=== PATIENT | male | born 1940 | race Caucasian/White ===

== ENCOUNTER 2016-11-30 15:55 | Inpatient (IN) | payer OTHER, MEDICARE ==
[~2016-11-30] VITALS: Ht 170.2 cm; Wt 98.0 kg
[~2016-11-30 15:55] MED LIST: CARV25TA97 PO; CRES10 PO; FOLI-49 PO; FURO-109 PO; GABA100C14 PO; GLYB5TAB3 PO; INSU100C SC; LEVEM SC; LOSA25TA2 PO; PANT40TA3 PO; POTA8TAB2 PO
[2016-11-30] MEDS ORDERED: CEFTRIAXONE 1 GM/50 ML (PMX) 50 ML IVPB STA (16:18)
[2016-11-30] MEDS ORDERED: SODIUM CHLORIDE 0.9% 1L BAG IV* STA (16:18)
--- NOTE | 2016-11-30 16:52 | RADRPT ---
PROCEDURE: XR Chest. CLINICAL INDICATION: Cough. Sepsis. TECHNIQUE: Single frontal view. COMPARISON: 06/29/2015. FINDINGS: Mild pulmonary edema is unchanged. The lungs are otherwise clear. The heart is enlarged. There is calcification in the aorta consistent with atherosclerosis. There is no pleural effusion. There is no pneumothorax. IMPRESSION: 1. Mild pulmonary edema, unchanged. 2. Cardiomegaly and atherosclerosis. RPTAT: QQ .Michael Mcnally MD, MD Date Time Electronically viewed and signed by .Michael Mcnally MD, MD on 11/30/2016 16:51 .R/
[2016-11-30 17:30] LABS: ADD SCAN DIFF NO
[2016-11-30 17:32] LABS: ABNORMAL IP MESSAGE 1; BASOPHILS % 0.4 % (0.0-2.0); EOSINOPHILS # 0.2 10^3/ul (0.0-0.5); EOSINOPHILS % 2.5 % (0.0-7.0); HEMATOCRIT 35.5 % (42.0-52.0); HEMOGLOBIN 10.6 g/dl (14.0-18.0); LYMPHOCYTES # 1.2 10^3/ul (0.8-2.9); LYMPHOCYTES % 17.7 % (15.0-51.0); MEAN CORPUSCULAR HEMOGLOBIN 23.2 pg (29.0-33.0); MEAN CORPUSCULAR HGB CONC 29.9 g/dl (32.0-37.0); MEAN CORPUSCULAR VOLUME 77.7 fl (82.0-101.0); MEAN PLATELET VOLUME 9.1 fl (7.4-10.4); MONOCYTE # 0.8 10^3/ul (0.3-0.9); MONOCYTES % 11.8 % (0.0-11.0); NEUTROPHIL # 4.5 10^3/ul (1.6-7.5); NEUTROPHILS % 67.2 % (39.0-77.0); PLATELET COUNT 254 10^3/UL (140-415); RED BLOOD COUNT 4.57 10^6/ul (4.70-6.10); RED CELL DISTRIBUTION WIDTH 27.8 % (11.5-14.5); WHITE BLOOD COUNT 6.8 10^3/ul (4.8-10.8)
[2016-11-30 17:42] LABS: ALBUMIN 3.8 g/dl (3.3-4.9); CHLORIDE 98 mmol/L (97-110)
[2016-11-30 17:43] LABS: POTASSIUM 5.2 mmol/L (3.5-5.1); SODIUM 138 mmol/L (135-144)
[2016-11-30 17:45] LABS: ALBUMIN/GLOBULIN RATIO 1.05; ALKALINE PHOSPHATASE 120 IU/L (42-121); ANION GAP 19 (8-16); ASPARTATE AMINO TRANSFERASE 21 IU/L (15-46); BILIRUBIN,INDIRECT 0.4 mg/dl (0-1.1); BILIRUBIN,TOTAL 0.4 mg/dl (0.2-1.3); CARBON DIOXIDE 26 mmol/L (21-31); CREATININE 2.48 mg/dl (0.61-1.24); TOTAL PROTEIN 7.4 g/dl (6.1-8.1)
[2016-11-30 17:46] LABS: ALANINE AMINOTRANSFERASE 18 IU/L (13-69); BLOOD UREA NITROGEN 35 mg/dl (7-20); CALCIUM 9.5 mg/dl (8.4-10.2); GLUCOSE 138 mg/dl (70-220)
[2016-11-30 17:58] LABS: TROPONIN-I < 0.012 ng/ml (0.00-0.12)
[2016-11-30 18:30] VITALS: TEMP 99
[2016-11-30 18:42] LABS: INR 0.99; PROTIME 13.1 Sec (12.2-14.2)
[2016-11-30 18:43] LABS: PARTIAL THROMBOPLASTIN TIME 28.5 Sec (25.0-35.0)
[2016-11-30] MEDS ORDERED: OMEP20CA16 PO (18:48)
[2016-11-30] MEDS ORDERED: CHOL500010 PO (18:50)
[2016-11-30] MEDS ORDERED: UBID200C8 PO (18:51)
[2016-11-30] MEDS ORDERED: LYR75 PO (18:53)
[2016-11-30] MEDS ORDERED: INSU100I7 SQ (19:43)
[2016-11-30] MEDS ORDERED: ONDANSETRON 4 MG INJ IV PRN (23:00)
[2016-11-30] MEDS ORDERED: ACETAMINOPHEN 325 MG TAB PO PRN (23:00)
[2016-11-30] MEDS ORDERED: NA POLYST SULFON 15 GM/60 ML BTL PO ONE (23:30)
--- NOTE | 2016-11-30 23:37 | ERD ---
ER Documentation Chief Complaint Date/Time DATE: 11/30/16 TIME: 23:15 Chief Complaint COUGH AND CONGESTION FOR THE PAST WEEK. GOT WORSE LAST NIGHT. MORE WEAK HPI 76-year-old male brought in by family and sent for primary care doctor for generalized weakness in addition to cough and congestion for the past week. Primary care doctor was also worried about dehydration and possible pneumonia. Patient has had chest pain mostly only with cough. Denies any fevers or chills. ROS All systems reviewed and are negative except as per history of present illness. Medications Home Meds Active Scripts Losartan Potassium* (Cozaar*) 25 Mg Tab, 25 MG PO DAILY, #30 Prov:RADAMANDAKO,JUVENCIO 06/30/15 Furosemide* (Lasix*) 40 Mg Tab, 80 MG PO DAILY, #30 Prov:RADCHENKO,JUVENCIO 06/30/15 Carvedilol* (Coreg*) 25 Mg Tab, 25 MG PO BID, #60 Prov:LONG DOEETLANA 05/31/15 Reported Medications Insulin Lispro Protamin/Lispro (Humalog Mix 75-25 Kwikpen) 100 Unit/1 Ml Insuln.pen, 0 SQ BID TAKE 30 UNITS QAM AND 20 UNITS QPM 11/30/16 Pregabalin* (Lyrica*) 75 Mg Capsule, 75 MG PO, CAP 11/30/16 Ubidecarenone* (Co Q-10*) 200 Mg Capsule, 200 MG PO HS, CAP 11/30/16 Cholecalciferol (Vitamin D3) 5,000 Unit Tablet, 5000 UNIT PO DAILY, TAB 11/30/16 Omeprazole* (Omeprazole*) 20 Mg Capsule.dr, 20 MG PO DAILY, #30 CAP 11/30/16 Potassium Chloride* (Klor-Con*) 8 Meq Tablet.sa, 8 MEQ PO DAILY, TAB 05/27/15 Insulin Detemir* (Levemir*) 100 U/Ml Vial, 50 UNIT SC DAILY, VIAL 03/16/15 Glyburide* (Glyburide*) 5 Mg Tablet, 5 MG PO BID 04/13/10 Folic Acid* (Folic Acid*) 1 Mg Tablet, 1 MG PO DAILY 04/13/10 Discontinued Reported Medications Pantoprazole* (Protonix*) 40 Mg Tablet.dr, 40 MG PO DAILY, TAB 05/27/15 Gabapentin* (Gabapentin*) 100 Mg Capsule, 100 MG PO BID, CAP 03/16/15 Insulin Lispro (Humalog) 100 U/Ml Cartridge, 30 UNITS SC BID, EA 06/17/14 Rosuvastatin Calcium* (Crestor*) 10 Mg Tablet, 10 MG PO DAILY 04/13/10 Allergies Allergies: Coded Allergies: influenza virus vaccine, specific (Verified Allergy, Unknown, 11/30/16) PMhx/Soc History of Surgery: Yes (cath 2010, R shoulder repair, R carotid, s/p TURP, B cataract, B TKR) Anesthesia Reaction: Yes (during bilateral shoulder surgery lung collapsed under anesthesia ) Hx Neurological Disorder: No Hx Respiratory Disorders: Yes (CHF) Hx Cardiac Disorders: Yes (HTN, HI CHO) Hx Psychiatric Problems: No Hx Miscellaneous Medical Probl: Yes (CAD, HTN, DM, dyslipidemia, CKD, cardiomyopathy) Hx Alcohol Use: Yes Hx Substance Use: No Hx Tobacco Use: Yes Smoking Status: Former smoker Physical Exam Vitals Vital Signs Date Time Temp Pulse Resp B/P Pulse Ox O2 Delivery O2 Flow Rate FiO2 11/30/16 21:43 88 21 126/72 94 Nasal Cannula 2.0 11/30/16 18:30 99.0 63 17 110/60 99 Room Air 11/30/16 17:34 89 20 148/105 100 3.0 11/30/16 17:34 Nasal Cannula 3.0 11/30/16 17:30 Nasal Cannula 3 11/30/16 15:59 101.0 90 22 90/53 92 Physical Exam Const: [] No acute distress Head: Atraumatic Eyes: Normal Conjunctiva ENT: Normal External Ears, Nose and Mouth. Somewhat dry mucous membranes of the mouth Neck: Full range of motion..~ No meningismus. Resp: Decreased bibasilar breath sounds, Cardio: Regular rate and rhythm, no murmurs Abd: Soft, non tender, non distended. Normal bowel sounds Skin: No petechiae or rashes Back: No midline or flank tenderness Ext: No cyanosis, or edema Neur: Awake and alert and oriented 3, no focal deficits, cranial nerves II through XII intact Psych: Normal Mood and Affect Result Diagram: 11/30/16 1715 11/30/16 171 Results 24 hrs Laboratory Tests Test 11/30/16 17:15 11/30/16 19:50 11/30/16 20:20 Activated Partial Thromboplast Time 28.5Sec Alanine Aminotransferase (ALT/SGPT) 18IU/L Albumin 3.8g/dl Albumin/Globulin Ratio 1.05 Alkaline Phosphatase 120IU/L Anion Gap 19 Aspartate Amino Transf (AST/SGOT) 21IU/L B-Type Natriuretic Peptide 1160PG/ML Basophils # 0.010^3/ul Basophils % 0.4% Blood Urea Nitrogen 35mg/dl Calcium Level 9.5mg/dl Carbon Dioxide Level 26mmol/L Chloride Level 98mmol/L Creatinine 2.48mg/dl Direct Bilirubin 0.00mg/dl Eosinophils # 0.210^3/ul Eosinophils % 2.5% Globulin 3.60g/dl Glucose Level 138mg/dl Hematocrit 35.5% Hemoglobin 10.6g/dl INR International Normalized Ratio 0.99 Indirect Bilirubin 0.4mg/dl Lactic Acid Level 2.4mmol/L 1.3mmol/L 1.6mmol/L Lymphocytes # 1.210^3/ul Lymphocytes % 17.7% Mean Corpuscular Hemoglobin 23.2pg Mean Corpuscular Hemoglobin Concent 29.9g/dl Mean Corpuscular Volume 77.7fl Mean Platelet Volume 9.1fl Monocytes # 0.810^3/ul Monocytes % 11.8% Neutrophils # 4.510^3/ul Neutrophils % 67.2% Nucleated Red Blood Cells # 0.010^3/ul Nucleated Red Blood Cells % 0.0/100WBC Platelet Count 41633^3/UL Potassium Level 5.2mmol/L Prothrombin Time 13.1Sec Prothrombin Time Ratio 1.0 Red Blood Count 4.5710^6/ul Red Cell Distribution Width 27.8% Sodium Level 138mmol/L Total Bilirubin 0.4mg/dl Total Protein 7.4g/dl Troponin I < 0.012ng/ml White Blood Count 6.810^3/ul Current Medications Medications (Trade) Dose Ordered Sig/Anderson Route PRN Reason Start Time Stop Time Status Last Admin Dose Admin Sodium Chloride 3010 ml 3,010 ml BOLUS OVER 2 HOURS STAT IV* 11/30/16 16:18 11/30/16 16:25 DC 11/30/16 17:52 Ceftriaxone Sodium (Rocephin) 50 ml @ 100 mls/hr ONCE STAT IVPB 3/17/17 16:18 11/30/16 16:47 DC 11/30/16 17:52 Ondansetron HCl (Zofran Inj) 4 mg ER BRIDGE PRN IV NAUSEA AND/OR VOMITING 11/30/16 23:00 12/01/16 22:59 Acetaminophen (Tylenol Tab) 650 mg ER BRIDGE PRN PO MILD PAIN/FEVER 11/30/16 23:00 12/01/16 22:59 Procedures/MDM 76-year-old male with dehydration and mild CHF exacerbation. Does have a significant cardiac history with atypical chest pain. Initially a septic workup was performed out of concern for pneumonia secondary to patient's symptoms of cough and generalized weakness. Was given normal saline 30 cc/kg for fluid resuscitation and further resuscitation will require very careful balance of fluid control in order to rehydrate with concurrent congestive heart failure. I have low suspicion for acute bacterial infection. See no need for IV antibiotics at this time. Cultures were taken. Patient may have an upper respiratory tract infection is viral in origin causing his cough as well as possible congestive heart failure. Being tested for influenza. He was given Kayexalate for mild hyperkalemia with no EKG changes. Spoke with Dr. Charles who says that he defers admission to the hospitalist team. I communicated with Dr. Clinton who will be admitting the patient to telemetry. EKG interpretation: Normal sinus rhythm rate of 87, right axis deviation, right bundle branch block, diffuse Q waves, no ST or T-wave changes concerning for acute ischemia. electronic device monitor interpretation: Normal sinus rhythm without arrhythmia Chest x-ray interpretation: Mild pulmonary edema, large mid pulmonary vasculature, no infiltrate, pneumothorax, no acute fractures. Departure Diagnosis: Primary Impression: Dehydration Additional Impressions: CHF (congestive heart failure) Hyperkalemia Renal insufficiency Condition: Stable HARJIT GARCIA DO Nov 30, 2016 23:37
[2016-12-01] VITALS (15 sets, daily range): BP systolic 116–173; BP diastolic 56–78; PULSE 89–97; RESP 16–21; Ht 170.2 cm; Wt 98.0 kg
[2016-12-01] MEDS ORDERED: UBID1CAP25 PO (00:40)
[2016-12-01] MEDS ORDERED: UBID200C3 PO (00:40)
[2016-12-01] MEDS ORDERED: LYR75 PO (00:40)
[2016-12-01] MEDS ORDERED: morphine 2 MG INJ IV PRN (01:00)
[2016-12-01] MEDS ORDERED: hydrALAzine 20 MG INJ IV PRN (01:00)
[2016-12-01] MEDS ORDERED: MAGNESIUM HYDROXIDE 30ML CUP PO PRN (01:00)
[2016-12-01] MEDS ORDERED: ONDANSETRON 4 MG INJ IV PRN (01:00)
[2016-12-01] MEDS ORDERED: DOCUSATE SODIUM 100 MG CAP PO PRN (01:00)
[2016-12-01] MEDS ORDERED: NACL 0.9% 3 ML SYG IV SCH (01:00)
[2016-12-01] MEDS ORDERED: ACETAMINOPHEN 325 MG TAB PO PRN (01:00)
[2016-12-01] MEDS ORDERED: NITROGLYCERIN (SL) 0.4 MG TAB SL PRN (01:00)
[2016-12-01] MEDS ORDERED: NA PHOSPHATE/BIPHOS 133 ML ENEMA PR PRN (01:00)
[2016-12-01] MEDS: HYDROCODONE/APAP (5/325) TAB PO PRN (01:22)
[2016-12-01 02:22] LABS: CREATINE KINASE 111 IU/L (23-200)
[2016-12-01 02:40] LABS: CK-MB 1.01 ng/ml (0.0-2.4); TROPONIN-I < 0.012 ng/ml (0.00-0.12)
[2016-12-01] MEDS ORDERED: GLUCAGON 1 MG INJ IM PRN (05:30)
[2016-12-01] MEDS ORDERED: DEXTROSE 50% 50 ML SYRINGE IV PRN ×2 (05:30)
[2016-12-01] MEDS ORDERED: GLUCOSE GEL 15 GRAM TUBE PO PRN ×2 (05:30)
[2016-12-01] MEDS ORDERED: GLUCOSE GEL 15 GRAM TUBE BUCCAL PRN (05:30)
[2016-12-01] MEDS: PANTOPRAZOLE (EC) 40 MG TAB PO SCH (05:48)
[2016-12-01] MEDS: LEVOFLOXACIN 750MG/D5W (PMX) 150 ML IVPB SCH (05:48)
[2016-12-01] MEDS ORDERED: FUROSEMIDE 40 MG INJ IV SCH (06:00)
[2016-12-01] MEDS ORDERED: FUROSEMIDE 20 MG INJ IV SCH (06:00)
--- NOTE | 2016-12-01 07:43 | HP ---
DATE OF ADMISSION: 11/30/2016 The patient was seen and examined by me on 11/30/2016 at 11:15 p.m. CHIEF COMPLAINT: Cough and congestion. HISTORY OF PRESENT ILLNESS: The patient is a 76-year-old male with a past medical history of coronar y artery disease, essential hypertension, type 2 diabetes, high cholesterol, CKD, and cardiomyopathy who was sent in by his primary care doctor and by family because of weakness, cough and congestion for about 1 week. Apparently the primary care doctor was concerned about pneumonia and possible deh ydration. The patient has been having some chest pressure as well, mostly associated with a cough. No fevers or chills. No upper or lower GI bleeding. No nausea, vomiting, no diarrhea, no constipa tion. When he came into the ER today he had a BNP of 1160, and his chest x-ray did show signs of so me mild pulmonary edema. When he came into the ER he was found with a temperature of 101 as well. PAST MEDICAL HISTORY: As stated above. ALLERGIES: INFLUENZA VIRUS VACCINE. PAST SURGICAL HISTORY: He had cardiac catheterization in 2009, right shoulder repair surgery in the past, TURP surgery in the past, cataract surgery in the past, and total knee replacement in the pas t. FAMILY HISTORY: Noncontributory. SOCIAL HISTORY: Positive for alcohol use, a former smoker. Denies any IV drug abuse. PHYSICAL EXAMINATION: VITAL SIGNS: Today T-max 101.1, pulse of 63 to 90, respirations 17 to 22, blood pressure is 90 to 1 48 systolic over 53 to 105 diastolic, saturating at 92% to 100% on 3 liters nasal cannula. GENERAL: The patient is lying in bed, in no acute distress. HEENT: Pupils are equal, round, and react to light. Extraocular muscles are intact. Slightly dry mucous membranes noted in the mouth. NECK: Supple. No thyromegaly. LUNGS: Slightly decreased breath sounds bilaterally. CARDIOVASCULAR: S1, S2 heard. No rubs or gallops. ABDOMEN: Soft, nontender, nondistended. Normal bowel sounds. No rebound or guarding. MUSCULOSKELETAL: No lower extremity edema bilaterally. NEUROLOGIC: No focal deficits. LABORATORIES: WBC 6.8, hemoglobin 10.6, hematocrit 35.5, platelets of 254. BNP, again, 1,160. Sod ium 138, potassium 5.3, chloride 98, CO2 26, BUN 35, creatinine 2.48. Lactic acid was 2.4, glucose was 138. LFTs were normal. Troponin was negative x1. IMAGING: Chest x-ray, again, showed cardiomegaly, atherosclerosis, and mild pulmonary edema. ASSESSMENT AND PLAN: A 76-year-old male coming in with signs of cough and congestion, with signs of CHF and acute on chronic renal insufficiency. 1. Shortness of breath secondary to congestive heart failure. The patient also has fever and an el evated lactic acid. Unclear source, possible upper respiratory infection component as well. Admit the patient to the med/surg floor. For now will put him on low-dose Lasix to diurese him and will p ut him on broad-spectrum antibiotics, trend his lactic acid, check a TSH, A1c, and lipid panel. Tyl enol p.r.n. for pain and fevers. Put him on Levaquin antibiotic as well. 2. Acute on chronic renal insufficiency. Because of the patient CHF, we are going to monitor him f or now. Monitor urine output. If it gets worse, will consider stopping the low-dose diuretics and putting him on IV fluids. Will also check a 2D echocardiogram as well. Get PT and OT consults. 3. History of diabetes. Continue the patient on a sliding scale and check an A1c. 4. High cholesterol. Check a lipid panel 5. History of hypertension. Blood pressure is stable presently. Continue the current medications, including hydralazine p.r.n. 6. History of coronary artery disease. Continue to monitor for now. He is also on low-dose beta b locker. 7. Gastrointestinal prophylaxis. PPI. 8. Deep venous thrombosis prophylaxis. Heparin subcutaneously. Dictated By: ANAHI CAVAZOS Conf#: [id number] DID#: [id number]
[2016-12-01] MEDS: INSULIN ASPART [NOVOLOG] 3 ML PEN SC SCH ×5 (07:55→21:00)
[2016-12-01 08:52] LABS: ADD SCAN DIFF NO
[2016-12-01 09:09] LABS: ABNORMAL IP MESSAGE 1; BASOPHILS % 0.2 % (0.0-2.0); EOSINOPHILS # 0.1 10^3/ul (0.0-0.5); EOSINOPHILS % 2.3 % (0.0-7.0); HEMATOCRIT 33.6 % (42.0-52.0); HEMOGLOBIN 9.8 g/dl (14.0-18.0); LYMPHOCYTES # 1.5 10^3/ul (0.8-2.9); LYMPHOCYTES % 29.4 % (15.0-51.0); MEAN CORPUSCULAR HEMOGLOBIN 22.8 pg (29.0-33.0); MEAN CORPUSCULAR HGB CONC 29.2 g/dl (32.0-37.0); MEAN CORPUSCULAR VOLUME 78.3 fl (82.0-101.0); MEAN PLATELET VOLUME 9.2 fl (7.4-10.4); MONOCYTE # 0.7 10^3/ul (0.3-0.9); MONOCYTES % 13.6 % (0.0-11.0); NEUTROPHIL # 2.8 10^3/ul (1.6-7.5); NEUTROPHILS % 54.1 % (39.0-77.0); PLATELET COUNT 242 10^3/UL (140-415); RED BLOOD COUNT 4.29 10^6/ul (4.70-6.10); RED CELL DISTRIBUTION WIDTH 28.2 % (11.5-14.5); WHITE BLOOD COUNT 5.2 10^3/ul (4.8-10.8)
[2016-12-01 09:27] LABS: POTASSIUM 4.5 mmol/L (3.5-5.1)
[2016-12-01 09:29] LABS: CREATININE 2.25 mg/dl (0.61-1.24)
[2016-12-01 09:30] LABS: CALCIUM 9.4 mg/dl (8.4-10.2); CREATINE KINASE 119 IU/L (23-200)
[2016-12-01 09:44] LABS: CK-MB 1.14 ng/ml (0.0-2.4); TROPONIN-I < 0.012 ng/ml (0.00-0.12)
[2016-12-01] MEDS: INSULIN DETEMIR [LEVEMIR] 3ML CART SC SCH (10:22)
[2016-12-01] MEDS: CHOLECALCIFEROL 1,000 UNIT TAB PO SCH (10:53)
[2016-12-01] MEDS: FOLIC ACID 1 MG TAB PO SCH (10:58)
[2016-12-01] MEDS: POTASSIUM CHLORIDE (SR) 8 MEQ CAP PO SCH (10:58)
[2016-12-01] MEDS: HEPARIN 5,000 UNIT/0.5 ML SYG SC SCH ×2 (11:01→21:24)
[2016-12-01 18:06] LABS: ADD UMIC YES; URINE BILIRUBIN (Dip) NEGATIVE (NEGATIVE); URINE BLOOD (Dip) TRACE (NEGATIVE); URINE COLOR LT. YELLOW (YELLOW); URINE GLUCOSE (Dip) NEGATIVE (NEGATIVE); URINE KETONES (Dip) NEGATIVE (NEGATIVE); URINE LEUKOCYTE ESTERASE (Dip) NEGATIVE (NEGATIVE); URINE NITRITE (Dip) NEGATIVE (NEGATIVE); URINE TOTAL PROTEIN (Dip) 2+ (NEGATIVE); URINE UROBILINOGEN (Dip) 0.2 E.U./dL (0.1-1.0)
[2016-12-01 18:17] LABS: BACTERIA,URINE FEW; TRANSITIONAL EPI CELLS,URINE FEW
[2016-12-01] MEDS: ALBUTEROL/IPRATROPIUM (NEB) 3 ML AMP HHN PRN (18:48)
[2016-12-01] MEDS: ALBUTEROL 0.083% (NEB) 2.5 MG/3 ML AMP HHN SCH (19:02)
[2016-12-01] MEDS ORDERED: NON-FORMULARY/PATIENT OWN MED (Ubidecarenone* (Co Q-10*) 200 MG) PO SCH (21:00)
[2016-12-01] MEDS: DOCUSATE SODIUM 100 MG CAP PO SCH (21:20)
[2016-12-02] VITALS (13 sets, daily range): BP systolic 142–167; BP diastolic 70–82; PULSE 90–93; RESP 16–20
[2016-12-02] MEDS: ALBUTEROL 0.083% (NEB) 2.5 MG/3 ML AMP HHN SCH ×3 (01:33→14:00)
[2016-12-02] MEDS: ACCU-CHEK XX SCH (01:54)
--- NOTE | 2016-12-02 04:59 | CONS ---
DATE OF ADMISSION: 11/30/2016 DATE OF CONSULTATION: 12/01/2016 NEPHROLOGY CONSULTATION REFERRING PHYSICIAN: Anber Clinton MD REASON FOR CONSULTATION: Acute kidney injury versus acute kidney injury on chronic kidney disease. HISTORY OF PRESENT ILLNESS: This is a 76-year-old male with a past medical history of coronary artery disease, essential hypertension, type 2 diabetes mellitus, high cholesterol, CKD, cardiomyopathy. He was sent by his primary care doctor because of having weakness, cough, congestion for about 1 week. His primary care doctor was also concerned about having pneumonia. The patient was dehydrated in the emergency room. He had a BNP of 1160. Chest x-ray shows mild pulmonary congestion. The patient was febrile in the emergency room. He was noted to have a creatinine of 2.48, BUN 35, potassium 5.2 on admission. His bicarbonate was 26. Renal has been consulted for acute versus acute on chronic renal failure. At the time of my evaluation on the telemetry floor, the patient was denying any nausea, vomiting, headache, dizziness, blurry vision, constipation, diarrhea , dysuria, increased urinary frequency. His systolic blood pressure was from 130s to 170s. REVIEW OF SYSTEMS: Positive for cough, congestion, weakness, fatigue, and fever. Other review of systems has been obtained and is negative except what is mentioned in the history of present illness. PAST MEDICAL HISTORY: Notable for hypertension, hyperlipidemia, cardiomyopathy , history of coronary artery disease, history of possible previous chronic kidney disease secondary to diabetic and hypertensive nephropathy. PAST SURGICAL HISTORY: The patient had a cardiac catheterization in 2009, right shoulder repair surgery in the past, TURP surgery in the past, cataract surgery in the past, total knee replacement in the past. FAMILY HISTORY: Noncontributory. SOCIAL HISTORY: The patient positive for alcohol use, former smoker, and denies any IV drug use. PHYSICAL EXAMINATION: VITAL SIGNS: The patient had a fever of 101.1, currently afebrile, temperature 98.6, heart rate 95, respiration 21, blood pressure 160/72, saturation 99% on 2 liter nasal cannula. GENERAL: Awake, alert, in no acute distress. HEENT: Normal. Oropharynx clear. NECK: Supple, no JVD, no lymphadenopathy. LUNGS: Clear to auscultation. Decreased breath sounds at both lung bases. HEART: S1, S2, with regular rhythm, no murmur. ABDOMEN: Soft, nontender, nondistended. Bowel sounds are present. EXTREMITIES: No clubbing, cyanosis, or edema. The patient has bibasilar crackles present on the lung exam. SKIN: No rash. PSYCHIATRIC: Appropriate affect and mood. LABORATORY DATA AND DIAGNOSTIC IMAGING: Sodium 138, potassium 5.2, chloride 98 , bicarbonate 26, BUN 35, creatinine 2.8, glucose 138. Lactic acid 2.4. LFTs are normal. BNP 1160. PT 13, PTT 28, INR 0.99. WBC 5.2, hemoglobin 9.8, platelet count 242. Chest x-ray 1 view portable shows pulmonary congestion with cardiomegaly and atherosclerosis. IMPRESSION: This is a 76-year-old male who presented with 1. Acute kidney injury versus acute kidney injury on chronic kidney disease, stage III to IV, secondary to hemodynamics in the setting of congestive heart failure and pneumonia. 2. Possible H/o chronic kidney disease, stage III to IV, secondary to diabetic nephropathy. 3. History of coronary artery disease status post previous cardiac catheterization. 4. History of hypertension. 5. History of type 2 diabetes mellitus. 6. Hyperkalemia secondary to acute kidney injury. 7. History of benign prostatic hypertrophy status post transurethral resection of the prostate in the past. PLAN: 1. I will order the patient's urine studies including a urine sodium, urine protein creatinine, urine eosinophils. 2. CK total with uric acid has been ordered with a.m. labs. 3. Renal ultrasound has been ordered to assess the kidney size and to rule out hydronephrosis. 4. Continue the current medications including IV antibiotics for pneumonia, Coreg. 5. I will increase the patient's IV Lasix to 40 mg IV daily for better diuresis. 6. The patient already received Kayexalate for his hyperkalemia, so we will continue to monitor his potassium with a.m. labs. Thank you, Dr. Clinton, for this consultation. I will continue to follow the patient. Total time spent in this patient's evaluations, making assessment and plan, Explaining Plan of Care to patient and the family member at bedside, communicating with the nursing staff took more than 90 minutes, and more than 50 % time spent in patient education and nursing staff communication. Dictated By: CORNELIO JOSÉ MD, KP/MASON Conf#: [id number] [facility]#: [id number] MTDD
[2016-12-02] MEDS: PANTOPRAZOLE (EC) 40 MG TAB PO SCH (06:01)
[2016-12-02] MEDS: FUROSEMIDE 40 MG INJ IV SCH (06:02)
[2016-12-02 06:06] LABS: ADD SCAN DIFF NO
[2016-12-02] MEDS: ALBUTEROL/IPRATROPIUM (NEB) 3 ML AMP HHN PRN ×3 (06:07→20:34)
[2016-12-02 06:14] LABS: ABNORMAL IP MESSAGE 1; BASOPHILS % 0.2 % (0.0-2.0); EOSINOPHILS # 0.2 10^3/ul (0.0-0.5); EOSINOPHILS % 3.7 % (0.0-7.0); HEMATOCRIT 34.9 % (42.0-52.0); HEMOGLOBIN 10.5 g/dl (14.0-18.0); LYMPHOCYTES # 1.6 10^3/ul (0.8-2.9); LYMPHOCYTES % 28.4 % (15.0-51.0); MEAN CORPUSCULAR HEMOGLOBIN 23.6 pg (29.0-33.0); MEAN CORPUSCULAR HGB CONC 30.1 g/dl (32.0-37.0); MEAN CORPUSCULAR VOLUME 78.4 fl (82.0-101.0); MEAN PLATELET VOLUME 9.1 fl (7.4-10.4); MONOCYTE # 0.7 10^3/ul (0.3-0.9); MONOCYTES % 12.8 % (0.0-11.0); NEUTROPHILS % 54.7 % (39.0-77.0); PLATELET COUNT 255 10^3/UL (140-415); RED BLOOD COUNT 4.45 10^6/ul (4.70-6.10); RED CELL DISTRIBUTION WIDTH 27.9 % (11.5-14.5); WHITE BLOOD COUNT 5.5 10^3/ul (4.8-10.8)
[2016-12-02 06:18] LABS: IRON 25 ug/dl (35-150)
[2016-12-02 06:28] LABS: TOTAL IRON BINDING CAPACITY 354 ug/dl (241-421)
[2016-12-02 06:29] LABS: URIC ACID 12.9 mg/dl (3.1-7.9)
[2016-12-02 07:12] LABS: POTASSIUM 3.8 mmol/L (3.5-5.1)
[2016-12-02 07:14] LABS: CREATININE 1.99 mg/dl (0.61-1.24)
[2016-12-02 07:15] LABS: MAGNESIUM 1.9 mg/dl (1.7-2.5); PHOSPHORUS 3.2 mg/dl (2.5-4.9)
[2016-12-02 07:16] LABS: CHOL/HDL RATIO 6.9 RATIO
[2016-12-02 07:46] LABS: THYROID STIMULATING HORMONE 1.47 MIU/L (0.465-4.680)
[2016-12-02] MEDS: INSULIN ASPART [NOVOLOG] 3 ML PEN SC SCH ×7 (07:55→21:00)
[2016-12-02] MEDS: POTASSIUM CHLORIDE (SR) 8 MEQ CAP PO SCH (08:54)
[2016-12-02] MEDS: FOLIC ACID 1 MG TAB PO SCH (08:55)
[2016-12-02] MEDS: DOCUSATE SODIUM 100 MG CAP PO SCH ×2 (08:55→21:15)
[2016-12-02] MEDS: CHOLECALCIFEROL 1,000 UNIT TAB PO SCH (08:55)
[2016-12-02] MEDS: HEPARIN 5,000 UNIT/0.5 ML SYG SC SCH ×2 (08:56→21:20)
[2016-12-02] MEDS: INSULIN DETEMIR [LEVEMIR] 3ML CART SC SCH (08:56)
--- NOTE | 2016-12-02 10:15 | RADRPT ---
PROCEDURE: Retroperitoneal US. CLINICAL INDICATION: Renal insufficiency TECHNIQUE: Multiple sonographic images of the kidneys and retroperitoneum were obtained. The imag es were reviewed on a PACS workstation. COMPARISON: 03/17/2015 FINDINGS: The kidneys are normal in size, contour, cortical thickness and cortical echogenicity. The right kidney measures 11.6 cm. The left kidney measures 12.3 cm. There are bilateral simple cysts in the kidneys, the largest in the right kidney measures 2.2 cm and the largest in the left kidney measures 3 cm. No kidney stones are visualized. There is no evidence for hydronephrosis. The urinary bladder is normal. RPTAT: AA IMPRESSION: Bilateral simple kidney cysts. No evidence of hydronephrosis. .Kentrell Campo MD, Date Time Electronically viewed and signed by .Kentrell Campo MD, MD on 12/02/2016 10:14 .S/
[2016-12-02] MEDS: SOD FERRIC GLUC COMPLX 125 MG in SOD CHLORIDE 0.9% 100 ML IVPB SCH (11:18)
--- NOTE | 2016-12-02 14:55 | RADRPT ---
Echocardiogram Report Patient Name: CAROLA GAITAN Gender: Male Date: 1940 Study Date: 01-Dec-2016 Systems Integration Advisor: DIANA Location: E Ref. Physician: ANAHI CARDOZA Quality: Adequate Procedures: Transthoracic echocardiogram with complete 2D, M-Mode, and doppler examination. Indications: Congestive Heart Failure. 2D/M Mode Doppler Measurement Value Normal Ranges Measurement Value Normal Ranges AoR Diam MM 3.6 cm AV Peak Rogelio 1.4 m/sec ACS MM 2.4 cm AV Peak PG 8.1 mmHg LVIDd 2D 5.2 3.5 - 5.6 cm LVOT Peak Rogelio 0.7 m/sec LVIDs 2D 3.9 2.1 - 4.1 cm LVOT Peak PG 1.9 mmHg LVPWd 2D 1.2 0.6 - 1.1 cm MV E Peak Rogelio 0.8 m/sec IVSd 2D 1.3 0.6 - 1.1 cm MV A Peak Rogelio 1.0 m/sec EDV 2D 131.2 cm3 MV E/A 0.8 ESV 2D 58.3 cm3 MV Decel Time 156 msec LA Dimen 2D 4.3 2.3 - 4.0 cm MV Decel Barrow 5 MV E/A 0.8 PV Peak Rogelio 1.0 m/sec PV Peak PG 4.0 mmHg Findings Left Ventricle: Normal left ventricular cavity size. Mild concentric left ventricular hypertrophy. At least mild global left ventricular systolic dysfunction, not all hawthorne imaged well. Ejection fraction is visually estimated at 45 %. Tissue Doppler/Mitral Doppler indices are consistent with impaired relaxation (Stage I diastolic dysfunction). E/E`=14. Wall motion abnormalities present, not all hawthorne imaged well. Right Ventricle: Normal right ventricular size. Normal right ventricular systolic function. Left Atrium: There is mild enlargement of left atrium. Right Atrium: The right atrium is normal in size. Atrial Septum: Normal atrial septum. Mitral Valve: Mild mitral annular calcification. Trace mitral regurgitation. Aortic Valve: No significant aortic stenosis or insufficiency. Normal trileaflet aortic valve structure. Aortic sclerosis without stenosis. Trileaflet aortic valve. Tricuspid Valve: Normal appearance of the tricuspid valve. Unable to obtain RVSP due to minimal presence of tricuspid regurgitation. There is trace tricuspid regurgitation. Pulmonic Valve: Normal pulmonic valve appearance. No evidence of pulmonic regurgitation. Pericardium: Moderate pericardial effusion no evidence of hemodynamic significant, unchanged from echo 2015. Aorta: Normal aortic root. IVC: Normal size and normal respiratory collapse consistent with normal right atrial pressure. Pulmonary Artery: Normal pulmonary artery size. Conclusions Normal left ventricular cavity size. Mild concentric left ventricular hypertrophy. At least mild global left ventricular systolic dysfunction, not all hawthorne imaged well. Ejection fraction is visually estimated at 45 %. Tissue Doppler/Mitral Doppler indices are consistent with impaired relaxation (Stage I diastolic dysfunction). E/E`=14. Wall motion abnormalities present, not all hawthorne imaged well. Normal right ventricular size. Normal right ventricular systolic function. There is mild enlargement of left atrium. Normal appearance of the tricuspid valve. Unable to obtain RVSP due to minimal presence of tricuspid regurgitation. There is trace tricuspid regurgitation. Moderate pericardial effusion no evidence of hemodynamic significant, unchanged from echo 2015. Normal size and normal respiratory collapse consistent with normal right atrial pressure. Compared with prior echo performed in 2015, no significant change. Electronically Signed By: Pranay Brownlee 02-Dec-2016 14:55:07 -0700 Patient Name: CAROLA GAITAN Study Date: 01-Dec-[id number]
[2016-12-02] MEDS ORDERED: SOD FERRIC GLUC COMPLX 125 MG in SOD CHLORIDE 0.9% 100 ML IVPB SCH (15:30)
--- NOTE | 2016-12-02 15:37 | PN ---
Date/Time of Note Date/Time of Note DATE: 12/02/16 TIME: 15:28 Assessment/Plan VTE Prophylaxis VTE Prophylaxis Intervention: heparin Lines/Catheters IV [facility]ter Type (from [facility]): [facility] Urinary Cath still in place: No Assessment/Plan Assessment/Plan A 76-year-old male coming in with signs of cough and congestion, with signs of CHF and acute on chronic renal insufficiency. 1. Shortness of breath secondary to congestive heart failure: improved 2. Sepsis 2/2 URI 3. Acute kidney injury versus acute kidney injury on chronic kidney disease, stage III to IV, secondary to hemodynamics in the setting of congestive heart failure and pneumonia. 4. Chronic kidney disease, stage III to IV, secondary to diabetic nephropathy. 5. Known coronary artery disease status post previous cardiac catheterization. 6. Hypertension. 7. Type 2 diabetes mellitus. 8. Hyperkalemia secondary to acute kidney injury. 9. History of benign prostatic hypertrophy status post transurethral resection of the prostate in the past. 10. 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 Chronic Moderate pericardial effusion , unchanged since 2014 12. Anemia of CKD + iron deficiency PLAN: * Continue diuresis * Continue abx / add mucolytic and inhaled steroids * appreciate Nephrology input f/u cardiology recs * Begin iron replenishment * Continue supportive care * Plan for d/c possibly tomorrow if cleared by both renal and cardio and if no further fever PROPHYLAXIS: Heparin / pepcid Subjective 24 Hr Interval Summary Free Text/Dictation c/o dry cough and inability to expectorate Exam/Review of Systems Vital Signs Vitals Vital Signs Date Time Temp Pulse Resp B/P Pulse Ox O2 Delivery O2 Flow Rate FiO2 12/02/16 14:24 2.0 12/02/16 12:25 93 12/02/16 11:40 98.5 20 154/74 99 12/02/16 11:27 Nasal Cannula Intake and Output 12/01/16 12/01/16 12/02/16 14:59 22:59 06:59 Intake Total 900 ml 850 ml Output Total 1200 ml Balance 900 ml -350 ml Exam Constitutional: alert, obese, oriented Head: atraumatic, normocephalic Eyes: PERRL ENMT: mucosa pink and moist Neck: supple, No jvd Respiratory: clear to auscultation, diminished breath sounds Cardiovascular: regular rate and rhythm, No murmurs/extra sounds Gastrointestinal: bowel sounds, non-tender, soft Extremities: No edema Neurological: nl mental status, nl speech Results Result Diagram: 12/02/16 0524 12/02/16 0524 Results 24 hrs Laboratory Tests Test 12/01/16 17:25 12/01/16 17:48 12/01/16 17:54 12/01/16 20:38 Urine Amorphous Urates FEW Urine Bacteria FEW Urine Bilirubin NEGATIVE Urine Clarity SLIGHTLY CLOUDY Urine Color LT. YELLOW Urine Glucose NEGATIVE Urine Hemoglobin TRACE Urine Hyaline Casts FEW Urine Ketones NEGATIVE Urine Leukocyte Esterase NEGATIVE Urine Microscopic RBC 2-5 Urine Microscopic WBC 0-2 Urine Nitrite NEGATIVE Urine Specific Rudd 1.025 Urine Total Protein 2+ H Urine Transitional Epithelial Cells FEW Urine Urobilinogen 0.2 E.U./dL Urine pH 5.0 Lactic Acid Level 1.2 Bedside Glucose 94 100 Test 12/01/16 21:00 12/02/16 05:24 12/02/16 07:54 12/02/16 11:10 Urine Eosinophils % 0.0 Urine Random Creatinine 101.17 Urine Random Sodium 49 Urine Total Protein 148.0 H Anion Gap 18 #H Basophils # 0.0 Basophils % 0.2 Blood Urea Nitrogen 34 H Calcium Level 9.0 Carbon Dioxide Level 25 Chloride Level 100 Cholesterol Level 152 Cholesterol/HDL Ratio 6.9 Creatine Kinase 218 H Creatinine 1.99 H Eosinophils # 0.2 Eosinophils % 3.7 Glucose Level 91 HDL Cholesterol 22 L Hematocrit 34.9 L Hemoglobin 10.5 L Hemoglobin A1c 9.7 H Iron Level 25 L LDL Cholesterol, Calculated 97 Lymphocytes # 1.6 Lymphocytes % 28.4 Magnesium Level 1.9 Mean Corpuscular Hemoglobin 23.6 L Mean Corpuscular Hemoglobin Concent 30.1 L Mean Corpuscular Volume 78.4 L Mean Platelet Volume 9.1 Monocytes # 0.7 Monocytes % 12.8 H Neutrophils # 3.0 Neutrophils % 54.7 Nucleated Red Blood Cells # 0.0 Nucleated Red Blood Cells % 0.0 Percent Iron Saturation 7 L Phosphorus Level 3.2 Platelet Count 255 Potassium Level 3.8 Red Blood Count 4.45 L Red Cell Distribution Width 27.9 H Sodium Level 139 Thyroid Stimulating Hormone (TSH) 1.470 Total Iron Binding Capacity 354 Triglycerides Level 166 H Uric Acid 12.9 H White Blood Count 5.5 Bedside Glucose 107 122 Medications Medications Current Medications Lorazepam 0.5 mg 0.5 mg Q6H PRN IV ANXIETY; Start 12/01/16 at 01:00 Levofloxacin/ Dextrose (Levaquin 750 Mg/ D5W 150 ml (Pmx)) 150 ml @ 100 mls/hr Q48H IVPB Last administered on 12/01/16 05:48; Admin Dose 100 MLS/HR; Start at 06:00 Hydralazine HCl (Apresoline) 10 mg Q6H PRN IV ELEVATED SYSTOLIC BP; Start 12/01 at 01:00 Nitroglycerin (Nitroglycerin (Sl Tab) 0.4 Mg) 1 tab Q5M PRN SL ANGINA; Start at 01:00 Ondansetron HCl (Zofran Inj) 4 mg Q6H PRN IV NAUSEA AND/OR VOMITING; Start at 01:00 Acetaminophen (Tylenol Tab) 650 mg Q6H PRN PO PAIN LEVEL 1-3 OR FEVER Last administered on 12/02/16 11:18; Admin Dose 650 MG; Start 12/01/16 at 01:00 Acetaminophen/ Hydrocodone Bitart (Hen[place] (5/325)) 1 tab Q6H PRN PO MODERATE PAIN LEVEL 4-6 Last administered on 12/01/16 01:22; Admin Dose 1 TAB; Start at 01:00 Morphine Sulfate (morphine) 2 mg Q4H PRN IV SEVERE PAIN LEVEL 7-10; Start 12/01 at 01:00 Docusate Sodium (Colace) 100 mg Q12H PRN PO CONSTIPATION; Start 12/01/16 at 01: 00 Magnesium Hydroxide (Milk Of Mag) 30 ml DAILY PRN PO CONSTIPATION; Start at 01:00 Sodium Biphosphate/ Sodium Phosphate (Fleet Enema) 133 ml DAILY PRN [place] CONSTIPATION; Start 12/01/16 at 01:00 Heparin Sodium (Porcine) (Heparin (5000 Units/0.5 ml)) 5,000 unit Q12 SC Last administered on 12/02/16 08:56; Admin Dose 5,000 UNIT; Start 12/01/16 at 09:00 Carvedilol (Coreg) 3.125 mg BID PO Last administered on 12/02/16 08:55; Admin Dose 3.125 MG; Start 12/01/16 at 09:00 Cholecalciferol (Vitamin D) 5,000 unit DAILY PO Last administered on 12/02/16 08:55; Admin Dose 5,000 UNIT; Start 12/01/16 at 09:00 Folic Acid (Folic Acid) 1 mg DAILY PO Last administered on 12/02/16 08:55; Admin Dose 1 MG; Start 12/01/16 at 09:00 Insulin Detemir (Levemir) 50 unit DAILY SC Last administered on 12/02/16 08:56 ; Admin Dose 50 UNIT; Start 12/01/16 at 09:00 Potassium Chloride (Micro-K) 8 meq DAILY PO Last administered on 12/02/16 08: 54; Admin Dose 8 MEQ; Start 12/01/16 at 09:00 Pantoprazole (Protonix Tab) 40 mg DAILY@06 PO Last administered on 12/02/16 06 :01; Admin Dose 40 MG; Start 12/01/16 at 06:00 Diagnostic Test (Pha) (Accucheck) 1 ea 02 XX ; Start 12/02/16 at 02:00 Miscellaneous Information 1 ea NOTE XX ; Start 12/01/16 at 05:30 Glucose (Glutose) 15 gm Q15M PRN PO DECREASED GLUCOSE; Start 12/01/16 at 05:30 Glucose (Glutose) 22.5 gm Q15M PRN PO DECREASED GLUCOSE; Start 12/01/16 at 05: 30 Dextrose (D50w Syringe) 25 ml Q15M PRN IV DECREASED GLUCOSE; Start 12/01/16 at 05:30 Dextrose (D50w Syringe) 50 ml Q15M PRN IV DECREASED GLUCOSE; Start 12/01/16 at 05:30 Glucagon (Glucagen) 1 mg Q15M PRN IM DECREASED GLUCOSE; Start 12/01/16 at 05:30 Glucose (Glutose) 15 gm Q15M PRN BUCCAL DECREASED GLUCOSE; Start 12/01/16 at 05 :30 Furosemide (Lasix) 40 mg DAILY@06 IV Last administered on 12/02/16 06:02; Admin Dose 40 MG; Start 12/02/16 at 06:00 Docusate Sodium 100 mg 100 mg BID PO Last administered on 12/02/16 08:55; Admin Dose 100 MG; Start 12/01/16 at 21:00 Ferric Sodium Gluconate Complex/ Sodium Chloride (Ferrlecit/NS) 110 ml @ 110 mls/hr Q24H IVPB Last administered on 12/02/16t 11:18; Admin Dose 110 MLS/HR; Start 12/02/16 at 11:00; Stop 12/06/16 at 11:59 Procedures Procedures Conclusions Normal left ventricular cavity size. Mild concentric left ventricular hypertrophy. At least mild global left ventricular systolic dysfunction, not all hawthorne imaged well. Ejection fraction is visually estimated at 45 %. Tissue Doppler/Mitral Doppler indices are consistent with impaired relaxation (Stage I diastolic dysfunction). E/E`=14. Wall motion abnormalities present, not all hawthorne imaged well. Normal right ventricular size. Normal right ventricular systolic function. There is mild enlargement of left atrium. Normal appearance of the tricuspid valve. Unable to obtain RVSP due to minimal presence of tricuspid regurgitation. There is trace tricuspid regurgitation. Moderate pericardial effusion no evidence of hemodynamic significant, unchanged from echo 2015. Normal size and normal respiratory collapse consistent with normal right atrial pressure. Compared with prior echo performed in 2014, no significant change. Electronically Signed By: Pranay Brownlee 02-Dec-2016 14:55:07 -0700 Patient Name: CAROLA GAITAN Study Date: 01-Dec-2016 [id number] PROCEDURE: Retroperitoneal US. CLINICAL INDICATION: Renal insufficiency TECHNIQUE: Multiple sonographic images of the kidneys and retroperitoneum were obtained. The images were reviewed on a PACS workstation. COMPARISON: 03/17/2015 FINDINGS: The kidneys are normal in size, contour, cortical thickness and cortical echogenicity. The right kidney measures 11.6 cm. The left kidney measures 12.3 cm. There are bilateral simple cysts in the kidneys, the largest in the right kidney measures 2.2 cm and the largest in the left kidney measures 3 cm. No kidney stones are visualized. There is no evidence for hydronephrosis. The urinary bladder is normal. RPTAT: AA IMPRESSION: Bilateral simple kidney cysts. No evidence of hydronephrosis. .Kentrell Campo MD, MD Date Time Electronically viewed and signed by .Kentrell Campo MD, MD on 12/02/2016 10: 14 .S/ CC: CORNELIO JOSÉ MD, BOLATITO M. Dec 02, 2016 15:36
--- NOTE | 2016-12-02 15:46 | CONS ---
Date/Time of Note Date/Time of Note DATE: 12/02/16 TIME: 15:28 Assessment/Plan Assessment/Plan Chief Complaint/Hosp Course # Acute on chronic systolic heart failure # h/o of NICM- # Moderate pericardial effusion- chronic, no tamponade on exam/by echo # Moderate coronary artery disease - last eval 2014 # Acute Kidney Injury/Chronic kidney disease: increase in creatinine noted, improving with diuresis # Diabetes mellitus on therapy # Hypertension controlled # Hyperlipidemia - on statin # Peripheral vascular disease - s/p CEA Recommendations: - cont iv lasix - watch i/o strict - watch electrolytes, keep K>4, Mg>2 - cont coreg, taking higher dose as outpt would increase - acei held due to a/ckd, would hope to restart when fxn improves given cardiomyopathy/dm2. watch potassium when restarting - cont asa/statin - Problems: Consultation Date/Type/Reason Admit Date/Time Nov 30, 2016 at 22:45 Date of Consultation: Dec 02, 2016 Type of Consultation: Cardiology Reason for Consultation Dyspnea Referring Provider: CARMITA DAVISON of Present Illness Mr. Roy is a 76-year-old male with a past medical history of NICM with LVEF 45-60%, mild CAD, DM2, HTN, HLD and CKD. Patient presents with one week of worsening mcnulty. States limited fxn at baseline due to knee pain. Has noticed over the last week dyspnea with basic activity, pnd, and dizziness after taking showers. He denies any chest pain, orthopnea, edema, palpitations, syncope. Pt does state had a mechanical fall down the stairs a few months back while trying to change a light bulb, no syncope, cp, sob prior to episode. Pt dnies any chills, sweats, did have fever on presentation however and was started on abx. Pt also with wt gain, slow he reports > 15#. Reports medication/dietary compliance. takes lasix with good response he states. Pt given IV lasix while admitted, with good response and improved symptoms. Cr elevated near baseline on admit with improvement as well, renal consulting. Constitutional: improved Eyes: no complaints ENT: no complaints Respiratory: shortness of breath Cardiovascular: lightheadedness, paroxysmal nocturnal dyspnea Gastrointestinal: no complaints Genitourinary: no complaints Musculoskeletal: bone/joint pain Skin: no complaints Neurologic: no complaints Endocrine: no complaints Psychological: nl mood/affect, no complaints Immunologic: no complaints Past Medical History Arteriosclerotic coronary artery disease (414.00) (I25.10) - moderate LAD lesion, unchanged 2009 to 2014 Carotid artery plaque (433.10) (I65.29)-CEA R 2007 Chronic kidney disease (585.9) (N18.9) Diabetes mellitus (250.00) (E11.9) 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) - last ef 65%, now 45% Dizziness (780.4) (R42) Essential hypertension (401.9) (I10) Hyperlipidemia (272.4) (E78.5) 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 Past Surgical History History of Carotid Thromboendarterectomy s/p rith carotid endarterectmy in 2007 History of Knee Surgery both knees operated on History of Shoulder Surgery shoulder surgery in 2009 Family History Significant Family History: other (Mother at age 59 with heart disease) Social History Alcohol Use: none Smoking Status: Former smoker Drug Use: none Exam/Review of Systems Vital Signs Vitals Vital Signs Date Time Temp Pulse Resp B/P Pulse Ox O2 Delivery O2 Flow Rate FiO2 12/02/16 14:24 2.0 12/02/16 12:25 93 12/02/16 11:40 98.5 20 154/74 99 12/02/16 11:27 Nasal Cannula Intake and Output 12/01/16 12/01/16 12/02/16 15:00 23:00 07:00 Intake Total 900 ml 850 ml Output Total 1200 ml Balance 900 ml -350 ml Exam Constitutional: alert, oriented Psych: no complaints, nl mood/affect Head: normocephalic Eyes: nl conjunctiva ENMT: nl external ears & nose Neck: supple, non-tender Respiratory: decreased bs R base, otherwise cta Cardiovascular: regular rate and rhythm, nl pulses, No edema, No S3 Gastrointestinal: soft, nl liver, spleen, non-tender Musculoskeletal: nl extremities to inspection Extremities: normal pulses Neurological: nl mental status Results Result Diagram: 12/02/16 0524 12/02/16 0524 Results 24 hrs Laboratory Tests Test 12/01/16 17:25 12/01/16 17:48 12/01/16 17:54 12/01/16 20:38 Urine Amorphous Urates FEW Urine Bacteria FEW Urine Bilirubin NEGATIVE Urine Clarity SLIGHTLY CLOUDY Urine Color LT. YELLOW Urine Glucose NEGATIVE Urine Hemoglobin TRACE Urine Hyaline Casts FEW Urine Ketones NEGATIVE Urine Leukocyte Esterase NEGATIVE Urine Microscopic RBC 2-5 Urine Microscopic WBC 0-2 Urine Nitrite NEGATIVE Urine Specific Dag[place] 1.025 Urine Total Protein 2+ H Urine Transitional Epithelial Cells FEW Urine Urobilinogen 0.2 E.U./dL Urine pH 5.0 Lactic Acid Level 1.2 Bedside Glucose 94 100 Test 12/01/16 21:00 12/02/16 05:24 12/02/16 07:54 12/02/16 11:10 Urine Eosinophils % 0.0 Urine Random Creatinine 101.17 Urine Random Sodium 49 Urine Total Protein 148.0 H Anion Gap 18 #H Basophils # 0.0 Basophils % 0.2 Blood Urea Nitrogen 34 H Calcium Level 9.0 Carbon Dioxide Level 25 Chloride Level 100 Cholesterol Level 152 Cholesterol/HDL Ratio 6.9 Creatine Kinase 218 H Creatinine 1.99 H Eosinophils # 0.2 Eosinophils % 3.7 Glucose Level 91 HDL Cholesterol 22 L Hematocrit 34.9 L Hemoglobin 10.5 L Hemoglobin A1c 9.7 H Iron Level 25 L LDL Cholesterol, Calculated 97 Lymphocytes # 1.6 Lymphocytes % 28.4 Magnesium Level 1.9 Mean Corpuscular Hemoglobin 23.6 L Mean Corpuscular Hemoglobin Concent 30.1 L Mean Corpuscular Volume 78.4 L Mean Platelet Volume 9.1 Monocytes # 0.7 Monocytes % 12.8 H Neutrophils # 3.0 Neutrophils % 54.7 Nucleated Red Blood Cells # 0.0 Nucleated Red Blood Cells % 0.0 Percent Iron Saturation 7 L Phosphorus Level 3.2 Platelet Count 255 Potassium Level 3.8 Red Blood Count 4.45 L Red Cell Distribution Width 27.9 H Sodium Level 139 Thyroid Stimulating Hormone (TSH) 1.470 Total Iron Binding Capacity 354 Triglycerides Level 166 H Uric Acid 12.9 H White Blood Count 5.5 Bedside Glucose 107 122 Medications Medications Current Medications Lorazepam 0.5 mg 0.5 mg Q6H PRN IV ANXIETY; Start 12/01/16 at 01:00 Levofloxacin/ Dextrose (Levaquin 750 Mg/ D5W 150 ml (Pmx)) 150 ml @ 100 mls/hr Q48H IVPB Last administered on 12/01/16t 05:48; Admin Dose 100 MLS/HR; Start at 06:00 Hydralazine HCl (Apresoline) 10 mg Q6H PRN IV ELEVATED SYSTOLIC BP; Start 12/01 at 01:00 Nitroglycerin (Nitroglycerin (Sl Tab) 0.4 Mg) 1 tab Q5M PRN SL ANGINA; Start at 01:00 Ondansetron HCl (Zofran Inj) 4 mg Q6H PRN IV NAUSEA AND/OR VOMITING; Start at 01:00 Acetaminophen (Tylenol Tab) 650 mg Q6H PRN PO PAIN LEVEL 1-3 OR FEVER Last administered on 12/02/16 11:18; Admin Dose 650 MG; Start 12/01/16 at 01:00 Acetaminophen/ Hydrocodone Bitart ([place] (5/325)) 1 tab Q6H PRN PO MODERATE PAIN LEVEL 4-6 Last administered on 12/01/16 01:22; Admin Dose 1 TAB; Start at 01:00 Morphine Sulfate (morphine) 2 mg Q4H PRN IV SEVERE PAIN LEVEL 7-10; Start 12/01 at 01:00 Docusate Sodium (Colace) 100 mg Q12H PRN PO CONSTIPATION; Start 12/01/16 at 01: 00 Magnesium Hydroxide (Milk Of Mag) 30 ml DAILY PRN PO CONSTIPATION; Start at 01:00 Sodium Biphosphate/ Sodium Phosphate (Fleet Enema) 133 ml DAILY PRN [place] CONSTIPATION; Start 12/01/16 at 01:00 Heparin Sodium (Porcine) (Heparin (5000 Units/0.5 ml)) 5,000 unit Q12 SC Last administered on 12/02/16 08:56; Admin Dose 5,000 UNIT; Start 12/01/16 at 09:00 Carvedilol (Coreg) 3.125 mg BID PO Last administered on 12/02/16 08:55; Admin Dose 3.125 MG; Start 12/01/16 at 09:00 Cholecalciferol (Vitamin D) 5,000 unit DAILY PO Last administered on 12/02/16 08:55; Admin Dose 5,000 UNIT; Start 12/01/16 at 09:00 Folic Acid (Folic Acid) 1 mg DAILY PO Last administered on 12/02/16 08:55; Admin Dose 1 MG; Start 12/01/16 at 09:00 Insulin Detemir (Levemir) 50 unit DAILY SC Last administered on 12/02/16 08:56 ; Admin Dose 50 UNIT; Start 12/01/16 at 09:00 Potassium Chloride (Micro-K) 8 meq DAILY PO Last administered on 12/02/16 08: 54; Admin Dose 8 MEQ; Start 12/01/16 at 09:00 Pantoprazole (Protonix Tab) 40 mg DAILY@06 PO Last administered on 12/02/16 06 :01; Admin Dose 40 MG; Start 12/01/16 at 06:00 Diagnostic Test (Pha) (Accucheck) 1 ea 02 XX ; Start 12/02/16 at 02:00 Miscellaneous Information 1 ea NOTE XX ; Start 12/01/16 at 05:30 Glucose (Glutose) 15 gm Q15M PRN PO DECREASED GLUCOSE; Start 12/01/16 at 05:30 Glucose (Glutose) 22.5 gm Q15M PRN PO DECREASED GLUCOSE; Start 12/01/16 at 05: 30 Dextrose (D50w Syringe) 25 ml Q15M PRN IV DECREASED GLUCOSE; Start 12/01/16 at 05:30 Dextrose (D50w Syringe) 50 ml Q15M PRN IV DECREASED GLUCOSE; Start 12/01/16 at 05:30 Glucagon (Glucagen) 1 mg Q15M PRN IM DECREASED GLUCOSE; Start 12/01/16 at 05:30 Glucose (Glutose) 15 gm Q15M PRN BUCCAL DECREASED GLUCOSE; Start 12/01/16 at 05 :30 Furosemide (Lasix) 40 mg DAILY@06 IV Last administered on 12/02/16 06:02; Admin Dose 40 MG; Start 12/02/16 at 06:00 Docusate Sodium 100 mg 100 mg BID PO Last administered on 12/02/16 08:55; Admin Dose 100 MG; Start 12/01/16 at 21:00 Ferric Sodium Gluconate Complex/ Sodium Chloride (Ferrlecit/NS) 110 ml @ 110 mls/hr Q24H IVPB Last administered on 12/02/16 11:18; Admin Dose 110 MLS/HR; Start 12/02/16 at 11:00; Stop 12/06/16 at 11:59 Procedures Procedures EKG reviewed: nsr, rbbb. tele reviewed no events. cxr images reviewed, mild pulm edema DOMENICO IRENE. Dec 02, 2016 15:38
[2016-12-02] MEDS: ATORVASTATIN 20 MG TAB PO SCH (21:15)
--- NOTE | 2016-12-02 21:29 | CONS ---
Date/Time of Note Date/Time of Note DATE: 12/02/16 TIME: 21:27 Assessment/Plan Assessment/Plan Additional Assessment/Plan 1. Acute kidney injury versus acute kidney injury on chronic kidney disease, stage III to IV, secondary to hemodynamics in the setting of congestive heart failure and pneumonia. 2. Possible H/o chronic kidney disease, stage III to IV, secondary to diabetic nephropathy. 3. History of coronary artery disease status post previous cardiac catheterization. 4. History of hypertension. 5. History of type 2 diabetes mellitus. 6. Hyperkalemia secondary to acute kidney injury. 7. History of benign prostatic hypertrophy status post transurethral resection of the prostate in the past. 8. Iron deficiency anemia, with iron saturation 7% PLAN: IV iron x 5 days Cr improved with IV lasix diuresis BP stable afebrile will continue to follow up Consultation Date/Type/Reason Admit Date/Time Nov 30, 2016 at 22:45 Initial Consult Date 12/01/16 Type of Consultation: NEPHROLOGY Referring Provider: CARMITA DAVISON 24 HR Interval Summary Free Text/Dictation pt remained stable,afebrile, less SOB, Cr improving Exam/Review of Systems Vital Signs Vitals Vital Signs Date Time Temp Pulse Resp B/P Pulse Ox O2 Delivery O2 Flow Rate FiO2 12/02/16 20:36 2.0 12/02/16 20:34 91 18 94 Nasal Cannula 12/02/16 20:00 98.2 154/70 Intake and Output 12/01/16 12/01/16 12/02/16 15:00 23:00 07:00 Intake Total 900 ml 850 ml Output Total 1200 ml Balance 900 ml -350 ml Exam GENERAL: Awake, alert, in no acute distress. HEENT: Normal. Oropharynx clear. NECK: Supple, no JVD, no lymphadenopathy. LUNGS: Clear to auscultation. Decreased breath sounds at both lung bases. HEART: S1, S2, with regular rhythm, no murmur. ABDOMEN: Soft, nontender, nondistended. Bowel sounds are present. EXTREMITIES: No clubbing, cyanosis, or edema. The patient has bibasilar crackles present on the lung exam. SKIN: No rash. PSYCHIATRIC: Appropriate affect and mood. Results Result Diagram: 12/02/1624 12/02/16 0524 Results 24 hrs Laboratory Tests Test 12/02/16 05:24 12/02/16 07:54 12/02/16 11:10 12/02/16 16:58 Anion Gap 18 #H Basophils # 0.0 Basophils % 0.2 Blood Urea Nitrogen 34 H Calcium Level 9.0 Carbon Dioxide Level 25 Chloride Level 100 Cholesterol Level 152 Cholesterol/HDL Ratio 6.9 Creatine Kinase 218 H Creatinine 1.99 H Eosinophils # 0.2 Eosinophils % 3.7 Glucose Level 91 HDL Cholesterol 22 L Hematocrit 34.9 L Hemoglobin 10.5 L Hemoglobin A1c 9.7 H Iron Level 25 L LDL Cholesterol, Calculated 97 Lymphocytes # 1.6 Lymphocytes % 28.4 Magnesium Level 1.9 Mean Corpuscular Hemoglobin 23.6 L Mean Corpuscular Hemoglobin Concent 30.1 L Mean Corpuscular Volume 78.4 L Mean Platelet Volume 9.1 Monocytes # 0.7 Monocytes % 12.8 H Neutrophils # 3.0 Neutrophils % 54.7 Nucleated Red Blood Cells # 0.0 Nucleated Red Blood Cells % 0.0 Percent Iron Saturation 7 L Phosphorus Level 3.2 Platelet Count 255 Potassium Level 3.8 Red Blood Count 4.45 L Red Cell Distribution Width 27.9 H Sodium Level 139 Thyroid Stimulating Hormone (TSH) 1.470 Total Iron Binding Capacity 354 Triglycerides Level 166 H Uric Acid 12.9 H White Blood Count 5.5 Bedside Glucose 107 122 121 Test 12/02/16 20:55 Bedside Glucose 105 Medications Medications Current Medications Lorazepam 0.5 mg 0.5 mg Q6H PRN IV ANXIETY; Start 12/01/16 at 01:00 Levofloxacin/ Dextrose (Levaquin 750 Mg/ D5W 150 ml (Pmx)) 150 ml @ 100 mls/hr Q48H IVPB Last administered on 12/01/16t 05:48; Admin Dose 100 MLS/HR; Start at 06:00 Hydralazine HCl (Apresoline) 10 mg Q6H PRN IV ELEVATED SYSTOLIC BP; Start 12/01 at 01:00 Nitroglycerin (Nitroglycerin (Sl Tab) 0.4 Mg) 1 tab Q5M PRN SL ANGINA; Start at 01:00 Ondansetron HCl (Zofran Inj) 4 mg Q6H PRN IV NAUSEA AND/OR VOMITING; Start at 01:00 Acetaminophen (Tylenol Tab) 650 mg Q6H PRN PO PAIN LEVEL 1-3 OR FEVER Last administered on 12/02/16 11:18; Admin Dose 650 MG; Start 12/01/16 at 01:00 Acetaminophen/ Hydrocodone Bitart ([place] (5/325)) 1 tab Q6H PRN PO MODERATE PAIN LEVEL 4-6 Last administered on 12/01/16 01:22; Admin Dose 1 TAB; Start at 01:00 Morphine Sulfate (morphine) 2 mg Q4H PRN IV SEVERE PAIN LEVEL 7-10; Start 12/01 at 01:00 Docusate Sodium (Colace) 100 mg Q12H PRN PO CONSTIPATION; Start 12/01/16 at 01: 00 Magnesium Hydroxide (Milk Of Mag) 30 ml DAILY PRN PO CONSTIPATION; Start at 01:00 Sodium Biphosphate/ Sodium Phosphate (Fleet Enema) 133 ml DAILY PRN [place] CONSTIPATION; Start 12/01/16 at 01:00 Heparin Sodium (Porcine) (Heparin (5000 Units/0.5 ml)) 5,000 unit Q12 SC Last administered on 12/02/16 21:20; Admin Dose 5,000 UNIT; Start 12/01/16 at 09:00 Cholecalciferol (Vitamin D) 5,000 unit DAILY PO Last administered on 12/02/16 08:55; Admin Dose 5,000 UNIT; Start 12/01/16 at 09:00 Folic Acid (Folic Acid) 1 mg DAILY PO Last administered on 12/02/16 08:55; Admin Dose 1 MG; Start 12/01/16 at 09:00 Insulin Detemir (Levemir) 50 unit DAILY SC Last administered on 12/02/16 08:56 ; Admin Dose 50 UNIT; Start 12/01/16 at 09:00 Potassium Chloride (Micro-K) 8 meq DAILY PO Last administered on 12/02/16 08: 54; Admin Dose 8 MEQ; Start 12/01/16 at 09:00 Pantoprazole (Protonix Tab) 40 mg DAILY@06 PO Last administered on 12/02/16 06 :01; Admin Dose 40 MG; Start 12/01/16 at 06:00 Diagnostic Test (Pha) (Accucheck) 1 ea 02 XX ; Start 12/02/16 at 02:00 Miscellaneous Information 1 ea NOTE XX ; Start 12/01/16 at 05:30 Glucose (Glutose) 15 gm Q15M PRN PO DECREASED GLUCOSE; Start 12/01/16 at 05:30 Glucose (Glutose) 22.5 gm Q15M PRN PO DECREASED GLUCOSE; Start 12/01/16 at 05: 30 Dextrose (D50w Syringe) 25 ml Q15M PRN IV DECREASED GLUCOSE; Start 12/01/16 at 05:30 Dextrose (D50w Syringe) 50 ml Q15M PRN IV DECREASED GLUCOSE; Start 12/01/16 at 05:30 Glucagon (Glucagen) 1 mg Q15M PRN IM DECREASED GLUCOSE; Start 12/01/16 at 05:30 Glucose (Glutose) 15 gm Q15M PRN BUCCAL DECREASED GLUCOSE; Start 12/01/16 at 05 :30 Furosemide (Lasix) 40 mg DAILY@06 IV Last administered on 12/02/16 06:02; Admin Dose 40 MG; Start 12/02/16 at 06:00 Docusate Sodium 100 mg 100 mg BID PO Last administered on 12/02/16 21:15; Admin Dose 100 MG; Start 12/01/16 at 21:00 Ferric Sodium Gluconate Complex/ Sodium Chloride (Ferrlecit/NS) 110 ml @ 110 mls/hr Q24H IVPB Last administered on 12/02/16 11:18; Admin Dose 110 MLS/HR; Start 12/02/16 at 11:00; Stop 12/06/16 at 11:59 Aspirin (Halfprin) 81 mg DAILY PO ; Start 12/03/16 at 09:00 Atorvastatin Calcium (Lipitor) 20 mg HS PO Last administered on 12/02/16 21:15 ; Admin Dose 20 MG; Start 12/02/16 at 21:00 Carvedilol (Coreg) 6.25 mg BID PO Last administered on 12/02/16 21:16; Admin Dose 6.25 MG; Start 12/02/16 at 21:00 CORNELIO JOSÉ MD Dec 02, 2016 21:29
[2016-12-03] VITALS (12 sets, daily range): BP systolic 111–162; BP diastolic 66–78; PULSE 83–96; RESP 16–20
[2016-12-03] MEDS: GUAIFENESIN/DM (SR) TAB PO SCH ×3 (00:27→20:55)
[2016-12-03] MEDS: SALMETEROL/FLUTICASONE 100/50 INHA INH SCH ×3 (00:27→20:56)
[2016-12-03] MEDS: ALBUTEROL/IPRATROPIUM (NEB) 3 ML AMP HHN PRN (01:11)
[2016-12-03] MEDS: ACCU-CHEK XX SCH (01:59)
[2016-12-03] MEDS: PANTOPRAZOLE (EC) 40 MG TAB PO SCH (05:35)
[2016-12-03] MEDS: LEVOFLOXACIN 750MG/D5W (PMX) 150 ML IVPB SCH (05:35)
[2016-12-03] MEDS: FUROSEMIDE 40 MG INJ IV SCH (05:35)
[2016-12-03] MEDS: INSULIN ASPART [NOVOLOG] 3 ML PEN SC SCH ×7 (07:55→20:53)
[2016-12-03] MEDS: CHOLECALCIFEROL 1,000 UNIT TAB PO SCH (08:20)
[2016-12-03] MEDS: FOLIC ACID 1 MG TAB PO SCH (08:21)
[2016-12-03] MEDS: ASPIRIN (EC) 81 MG TAB PO SCH (08:21)
[2016-12-03] MEDS: DOCUSATE SODIUM 100 MG CAP PO SCH ×2 (08:21→20:56)
[2016-12-03] MEDS: POTASSIUM CHLORIDE (SR) 8 MEQ CAP PO SCH (08:21)
[2016-12-03] MEDS: HEPARIN 5,000 UNIT/0.5 ML SYG SC SCH ×2 (08:26→21:06)
[2016-12-03] MEDS: INSULIN DETEMIR [LEVEMIR] 3ML CART SC SCH (08:27)
--- NOTE | 2016-12-03 09:17 | CONS ---
Date/Time of Note Date/Time of Note DATE: 12/03/16 TIME: 09:16 Assessment/Plan Assessment/Plan Additional Assessment/Plan 1. Acute kidney injury versus acute kidney injury on chronic kidney disease, stage III to IV, secondary to hemodynamics in the setting of congestive heart failure and pneumonia. 2. Possible H/o chronic kidney disease, stage III to IV, secondary to diabetic nephropathy. 3. History of coronary artery disease status post previous cardiac catheterization. 4. History of hypertension. 5. History of type 2 diabetes mellitus. 6. Hyperkalemia secondary to acute kidney injury. 7. History of benign prostatic hypertrophy status post transurethral resection of the prostate in the past. 8. Iron deficiency anemia, with iron saturation 7% PLAN: IV iron x 5 days Cr improved with IV lasix diuresis - Cr 1.9 yesterday, no labs today to review yet makign good urine output will continue to follow up Consultation Date/Type/Reason Admit Date/Time Nov 30, 2016 at 22:45 Initial Consult Date 12/01/16 Type of Consultation: NEPHROLOGY Referring Provider: CARMITA DAVISON 24 HR Interval Summary Free Text/Dictation Cr 1.9, BP stable, afebrile,making good urine output Exam/Review of Systems Vital Signs Vitals Vital Signs Date Time Temp Pulse Resp B/P Pulse Ox O2 Delivery O2 Flow Rate FiO2 12/03/16 08:51 Nasal Cannula 2.0 12/03/16 08:00 90 12/03/16 07:51 97.5 20 152/78 98 Intake and Output 12/02/16 12/02/16 12/03/16 15:00 23:00 07:00 Intake Total 110 ml 960 ml 780 ml Output Total 1000 ml 1200 ml Balance 110 ml -40 ml -420 ml Exam GENERAL: Awake, alert, in no acute distress. HEENT: Normal. Oropharynx clear. NECK: Supple, no JVD, no lymphadenopathy. LUNGS: Clear to auscultation. Decreased breath sounds at both lung bases. HEART: S1, S2, with regular rhythm, no murmur. ABDOMEN: Soft, nontender, nondistended. Bowel sounds are present. EXTREMITIES: No clubbing, cyanosis, or edema. The patient has bibasilar crackles present on the lung exam. SKIN: No rash. PSYCHIATRIC: Appropriate affect and mood. Results Result Diagram: 12/02/16 0524 12/02/16 0524 Results 24 hrs Laboratory Tests Test 12/02/16 11:10 12/02/16 16:58 12/02/16 20:55 12/03/16 07:37 Bedside Glucose 122 121 105 113 Medications Medications Current Medications Lorazepam 0.5 mg 0.5 mg Q6H PRN IV ANXIETY; Start 12/01/16 at 01:00 Levofloxacin/ Dextrose (Levaquin 750 Mg/ D5W 150 ml (Pmx)) 150 ml @ 100 mls/hr Q48H IVPB Last administered on 12/03/16 05:35; Admin Dose 100 MLS/HR; Start at 06:00 Hydralazine HCl (Apresoline) 10 mg Q6H PRN IV ELEVATED SYSTOLIC BP; Start 12/01 at 01:00 Nitroglycerin (Nitroglycerin (Sl Tab) 0.4 Mg) 1 tab Q5M PRN SL ANGINA; Start at 01:00 Ondansetron HCl (Zofran Inj) 4 mg Q6H PRN IV NAUSEA AND/OR VOMITING; Start at 01:00 Acetaminophen (Tylenol Tab) 650 mg Q6H PRN PO PAIN LEVEL 1-3 OR FEVER Last administered on 12/02/16 11:18; Admin Dose 650 MG; Start 12/01/16 at 01:00 Acetaminophen/ Hydrocodone Bitart ([place] (5/325)) 1 tab Q6H PRN PO MODERATE PAIN LEVEL 4-6 Last administered on 12/01/16 01:22; Admin Dose 1 TAB; Start at 01:00 Morphine Sulfate (morphine) 2 mg Q4H PRN IV SEVERE PAIN LEVEL 7-10; Start 12/01 at 01:00 Docusate Sodium (Colace) 100 mg Q12H PRN PO CONSTIPATION; Start 12/01/16 at 01: 00 Magnesium Hydroxide (Milk Of Mag) 30 ml DAILY PRN PO CONSTIPATION; Start at 01:00 Sodium Biphosphate/ Sodium Phosphate (Fleet Enema) 133 ml DAILY PRN [place] CONSTIPATION; Start 12/01/16 at 01:00 Heparin Sodium (Porcine) (Heparin (5000 Units/0.5 ml)) 5,000 unit Q12 SC Last administered on 12/03/16 08:26; Admin Dose 5,000 UNIT; Start 12/01/16 at 09:00 Cholecalciferol (Vitamin D) 5,000 unit DAILY PO Last administered on 12/03/16 08:20; Admin Dose 5,000 UNIT; Start 12/01/16 at 09:00 Folic Acid (Folic Acid) 1 mg DAILY PO Last administered on 12/03/16 08:21; Admin Dose 1 MG; Start 12/01/16 at 09:00 Insulin Detemir (Levemir) 50 unit DAILY SC Last administered on 12/03/16 08:27 ; Admin Dose 50 UNIT; Start 12/01/16 at 09:00 Potassium Chloride (Micro-K) 8 meq DAILY PO Last administered on 12/03/16 08: 21; Admin Dose 8 MEQ; Start 12/01/16 at 09:00 Pantoprazole (Protonix Tab) 40 mg DAILY@06 PO Last administered on 12/03/16 05 :35; Admin Dose 40 MG; Start 12/01/16 at 06:00 Diagnostic Test (Pha) (Accucheck) 1 ea 02 XX ; Start 12/02/16 at 02:00 Miscellaneous Information 1 ea NOTE XX ; Start 12/01/16 at 05:30 Glucose (Glutose) 15 gm Q15M PRN PO DECREASED GLUCOSE; Start 12/01/16 at 05:30 Glucose (Glutose) 22.5 gm Q15M PRN PO DECREASED GLUCOSE; Start 12/01/16 at 05: 30 Dextrose (D50w Syringe) 25 ml Q15M PRN IV DECREASED GLUCOSE; Start 12/01/16 at 05:30 Dextrose (D50w Syringe) 50 ml Q15M PRN IV DECREASED GLUCOSE; Start 12/01/16 at 05:30 Glucagon (Glucagen) 1 mg Q15M PRN IM DECREASED GLUCOSE; Start 12/01/16 at 05:30 Glucose (Glutose) 15 gm Q15M PRN BUCCAL DECREASED GLUCOSE; Start 12/01/16 at 05 :30 Furosemide (Lasix) 40 mg DAILY@06 IV Last administered on 12/03/16 05:35; Admin Dose 40 MG; Start 12/02/16 at 06:00 Docusate Sodium 100 mg 100 mg BID PO Last administered on 12/03/16 08:21; Admin Dose 100 MG; Start 12/01/16 at 21:00 Ferric Sodium Gluconate Complex/ Sodium Chloride (Ferrlecit/NS) 110 ml @ 110 mls/hr Q24H IVPB Last administered on 12/02/16 11:18; Admin Dose 110 MLS/HR; Start 12/02/16 at 11:00; Stop 12/06/16 at 11:59 Aspirin (Halfprin) 81 mg DAILY PO Last administered on 12/03/16 08:21; Admin Dose 81 MG; Start 12/03/16 at 09:00 Atorvastatin Calcium (Lipitor) 20 mg HS PO Last administered on 12/02/16 21:15 ; Admin Dose 20 MG; Start 12/02/16 at 21:00 Carvedilol (Coreg) 6.25 mg BID PO Last administered on 12/03/16 08:21; Admin Dose 6.25 MG; Start 12/02/16 at 21:00 Guaifenesin/ Dextromethorphan (Mucinex Dm) 1 tab BID PO Last administered on 08:20; Admin Dose 1 TAB; Start 12/02/16 at 23:30 Salmeterol Xinafoate/ Fluticasone (Advair 100/50 Diskus) 1 inh BID INH Last administered on 12/03/16 08:20; Admin Dose 1 INH; Start 12/02/16 at 23:30 CORNELIO JOSÉ MD Dec 03, 2016 09:17
[2016-12-03] MEDS: SOD FERRIC GLUC COMPLX 125 MG in SOD CHLORIDE 0.9% 100 ML IVPB SCH (12:01)
[2016-12-03 12:09] LABS: ADD SCAN DIFF NO
[2016-12-03 12:14] LABS: ABNORMAL IP MESSAGE 1; BASOPHILS % 0.2 % (0.0-2.0); EOSINOPHILS # 0.2 10^3/ul (0.0-0.5); EOSINOPHILS % 4.4 % (0.0-7.0); HEMOGLOBIN 10.8 g/dl (14.0-18.0); LYMPHOCYTES # 1.5 10^3/ul (0.8-2.9); LYMPHOCYTES % 31.1 % (15.0-51.0); MEAN CORPUSCULAR HEMOGLOBIN 23.6 pg (29.0-33.0); MEAN CORPUSCULAR VOLUME 78.8 fl (82.0-101.0); MEAN PLATELET VOLUME 8.9 fl (7.4-10.4); MONOCYTE # 0.5 10^3/ul (0.3-0.9); MONOCYTES % 10.6 % (0.0-11.0); NEUTROPHIL # 2.5 10^3/ul (1.6-7.5); NEUTROPHILS % 53.5 % (39.0-77.0); PLATELET COUNT 259 10^3/UL (140-415); RED BLOOD COUNT 4.57 10^6/ul (4.70-6.10); RED CELL DISTRIBUTION WIDTH 27.9 % (11.5-14.5); WHITE BLOOD COUNT 4.7 10^3/ul (4.8-10.8)
[2016-12-03 12:33] LABS: POTASSIUM 4.5 mmol/L (3.5-5.1)
[2016-12-03 12:35] LABS: CREATININE 1.83 mg/dl (0.61-1.24)
[2016-12-03 12:36] LABS: CALCIUM 9.5 mg/dl (8.4-10.2)
--- NOTE | 2016-12-03 14:49 | CONS ---
Date/Time of Note Date/Time of Note DATE: 12/03/16 TIME: 14:45 Consult Date/Type/Reason Admit Date/Time Nov 30, 2016 at 22:45 Initial Consult Date 12/02/16 Type of Consultation: cardiology Ordering Provider: CARMITA DAVISON Subjective no acute events. pt feeling well he states, no cp/sob. does have some cough. no pnd, orthopnea, bleeding. no palp, dizziness, fainting tele reviewed: no events, nsr Objective PE:Constitutional: alert, oriented Psych: no complaints, nl mood/affect Head: normocephalic Eyes: nl conjunctiva ENMT: nl external ears & nose Neck: supple, non-tender Respiratory: decreased bs R base, otherwise cta Cardiovascular: regular rate and rhythm, nl pulses, No edema, No S3 Gastrointestinal: soft, nl liver, spleen, non-tender Musculoskeletal: nl extremities to inspection Extremities: normal pulses Neurological: nl mental status PE: all other systems negative Vital Signs Date Time Temp Pulse Resp B/P Pulse Ox O2 Delivery O2 Flow Rate FiO2 12/03/16 12:00 96 12/03/16 11:38 97.5 20 111/71 98 12/03/16 08:51 Nasal Cannula 2.0 Intake and Output 12/02/16 12/02/16 12/03/16 15:00 23:00 07:00 Intake Total 110 ml 960 ml 780 ml Output Total 1000 ml 1200 ml Balance 110 ml -40 ml -420 ml Results/Medications Result Diagram: 12/03/16 1205 12/03/16 1205 Results 24 hrs Laboratory Tests Test 12/02/16 16:58 12/02/16 20:55 12/03/16 07:37 12/03/16 11:19 Bedside Glucose 121 105 113 169 Test 12/03/16 12:05 Anion Gap 18 H Basophils # 0.0 Basophils % 0.2 Blood Urea Nitrogen 30 H Calcium Level 9.5 Carbon Dioxide Level 29 Chloride Level 97 Creatinine 1.83 H Eosinophils # 0.2 Eosinophils % 4.4 Glucose Level 161 Hematocrit 36.0 L Hemoglobin 10.8 L Lymphocytes # 1.5 Lymphocytes % 31.1 Mean Corpuscular Hemoglobin 23.6 L Mean Corpuscular Hemoglobin Concent 30.0 L Mean Corpuscular Volume 78.8 L Mean Platelet Volume 8.9 Monocytes # 0.5 Monocytes % 10.6 Neutrophils # 2.5 Neutrophils % 53.5 Nucleated Red Blood Cells # 0.0 Nucleated Red Blood Cells % 0.0 Platelet Count 259 Potassium Level 4.5 Red Blood Count 4.57 L Red Cell Distribution Width 27.9 H Sodium Level 139 White Blood Count 4.7 L Medications Current Medications Lorazepam 0.5 mg 0.5 mg Q6H PRN IV ANXIETY; Start 12/01/16 at 01:00 Levofloxacin/ Dextrose (Levaquin 750 Mg/ D5W 150 ml (Pmx)) 150 ml @ 100 mls/hr Q48H IVPB Last administered on 12/03/16 05:35; Admin Dose 100 MLS/HR; Start at 06:00 Hydralazine HCl (Apresoline) 10 mg Q6H PRN IV ELEVATED SYSTOLIC BP; Start 12/01 at 01:00 Nitroglycerin (Nitroglycerin (Sl Tab) 0.4 Mg) 1 tab Q5M PRN SL ANGINA; Start at 01:00 Ondansetron HCl (Zofran Inj) 4 mg Q6H PRN IV NAUSEA AND/OR VOMITING; Start at 01:00 Acetaminophen (Tylenol Tab) 650 mg Q6H PRN PO PAIN LEVEL 1-3 OR FEVER Last administered on 12/02/16 11:18; Admin Dose 650 MG; Start 12/01/16 at 01:00 Acetaminophen/ Hydrocodone Bitart ([place] (5/325)) 1 tab Q6H PRN PO MODERATE PAIN LEVEL 4-6 Last administered on 12/01/16 01:22; Admin Dose 1 TAB; Start at 01:00 Morphine Sulfate (morphine) 2 mg Q4H PRN IV SEVERE PAIN LEVEL 7-10; Start 12/01 at 01:00 Docusate Sodium (Colace) 100 mg Q12H PRN PO CONSTIPATION; Start 12/01/16 at 01: 00 Magnesium Hydroxide (Milk Of Mag) 30 ml DAILY PRN PO CONSTIPATION; Start at 01:00 Sodium Biphosphate/ Sodium Phosphate (Fleet Enema) 133 ml DAILY PRN [place] CONSTIPATION; Start 12/01/16 at 01:00 Heparin Sodium (Porcine) (Heparin (5000 Units/0.5 ml)) 5,000 unit Q12 SC Last administered on 12/03/16 08:26; Admin Dose 5,000 UNIT; Start 12/01/16 at 09:00 Cholecalciferol (Vitamin D) 5,000 unit DAILY PO Last administered on 12/03/16 08:20; Admin Dose 5,000 UNIT; Start 12/01/16 at 09:00 Folic Acid (Folic Acid) 1 mg DAILY PO Last administered on 12/03/16 08:21; Admin Dose 1 MG; Start 12/01/16 at 09:00 Insulin Detemir (Levemir) 50 unit DAILY SC Last administered on 12/03/16 08:27 ; Admin Dose 50 UNIT; Start 12/01/16 at 09:00 Potassium Chloride (Micro-K) 8 meq DAILY PO Last administered on 12/03/16 08: 21; Admin Dose 8 MEQ; Start 12/01/16 at 09:00 Pantoprazole (Protonix Tab) 40 mg DAILY@06 PO Last administered on 12/03/16 05 :35; Admin Dose 40 MG; Start 12/01/16 at 06:00 Diagnostic Test (Pha) (Accucheck) 1 ea 02 XX ; Start 12/02/16 at 02:00 Miscellaneous Information 1 ea NOTE XX ; Start 12/01/16 at 05:30 Glucose (Glutose) 15 gm Q15M PRN PO DECREASED GLUCOSE; Start 12/01/16 at 05:30 Glucose (Glutose) 22.5 gm Q15M PRN PO DECREASED GLUCOSE; Start 12/01/16 at 05: 30 Dextrose (D50w Syringe) 25 ml Q15M PRN IV DECREASED GLUCOSE; Start 12/01/16 at 05:30 Dextrose (D50w Syringe) 50 ml Q15M PRN IV DECREASED GLUCOSE; Start 12/01/16 at 05:30 Glucagon (Glucagen) 1 mg Q15M PRN IM DECREASED GLUCOSE; Start 12/01/16 at 05:30 Glucose (Glutose) 15 gm Q15M PRN BUCCAL DECREASED GLUCOSE; Start 12/01/16 at 05 :30 Furosemide (Lasix) 40 mg DAILY@06 IV Last administered on 12/03/16 05:35; Admin Dose 40 MG; Start 12/02/16 at 06:00 Docusate Sodium 100 mg 100 mg BID PO Last administered on 12/03/16 08:21; Admin Dose 100 MG; Start 12/01/16 at 21:00 Ferric Sodium Gluconate Complex/ Sodium Chloride (Ferrlecit/NS) 110 ml @ 110 mls/hr Q24H IVPB Last administered on 12/03/16 12:01; Admin Dose 110 MLS/HR; Start 12/02/16 at 11:00; Stop 12/06/16 at 11:59 Aspirin (Halfprin) 81 mg DAILY PO Last administered on 12/03/16 08:21; Admin Dose 81 MG; Start 12/03/16 at 09:00 Atorvastatin Calcium (Lipitor) 20 mg HS PO Last administered on 12/02/16 21:15 ; Admin Dose 20 MG; Start 12/02/16 at 21:00 Carvedilol (Coreg) 6.25 mg BID PO Last administered on 12/03/16 08:21; Admin Dose 6.25 MG; Start 12/02/16 at 21:00 Guaifenesin/ Dextromethorphan (Mucinex Dm) 1 tab BID PO Last administered on 08:20; Admin Dose 1 TAB; Start 12/02/16 at 23:30 Salmeterol Xinafoate/ Fluticasone (Advair 100/50 Diskus) 1 inh BID INH Last administered on 12/03/16 08:20; Admin Dose 1 INH; Start 12/02/16 at 23:30 Assessment/Plan Chief Complaint/Hosp Course # Acute on chronic systolic heart failure # h/o of NICM- # Moderate pericardial effusion- chronic, no tamponade on exam/by echo # Moderate coronary artery disease - last [email or web address] # Acute Kidney Injury/Chronic kidney disease: increase in creatinine noted, improving with diuresis # Diabetes mellitus on therapy # Hypertension uncontrolled # Hyperlipidemia - on statin # Peripheral vascular disease - s/p CEA Recommendations: - switch to po lasix tomorrow - watch i/o strict - watch electrolytes, keep K>4, Mg>2 - cont coreg, increase to home dose 12.5mg po bid given high bp - acei held due to a/ckd, would hope to restart when fxn improves given cardiomyopathy/dm2. watch potassium when restarting - cont asa/statin - Problems: DOMENICO IRENE Dec 03, 2016 14:49
--- NOTE | 2016-12-03 18:51 | PN ---
Date/Time of Note Date/Time of Note DATE: 12/03/16 TIME: 18:45 Assessment/Plan VTE Prophylaxis VTE Prophylaxis Intervention: LMWH Lines/Catheters IV C[facility]ter Type (from [facility] Urinary Cath still in place: No Assessment/Plan Chief Complaint/Hosp Course A/P 1) Ac decompensated CHF- systolic ~45%; stable, improved. 2) Chr Pericardial effusion. etio? chf/uremic/vs etoh 3) ARF/raimundo; improved post diuretics. dc home if ok w cardio. 4) CAD 5) Recent fever. viral process? 6) Past tobacco 7) BPH 8) PAD/ ho cea 9) Past etoh? 10) Anemia; appears asymptomatic 11) Low hdl/ Htn 12) Dm 9.0! Problems: Subjective 24 Hr Interval Summary Free Text/Dictation S- feels better. wants to go home. occ etoh. still adds salt to his foods. checks his wt daily. wt increased from ~190- 210! Exam/Review of Systems Vital Signs Vitals Vital Signs Date Time Temp Pulse Resp B/P Pulse Ox O2 Delivery O2 Flow Rate FiO2 12/03/16 17:51 2.0 12/03/16 16:22 97.8 74 20 162/66 98 12/03/16 08:51 Nasal Cannula Intake and Output 12/02/16 12/02/16 12/03/16 14:59 22:59 06:59 Intake Total 110 ml 960 ml 780 ml Output Total 1000 ml 1200 ml Balance 110 ml -40 ml -420 ml Exam Respiratory: crackles/rales Cardiovascular: regular rate and rhythm Gastrointestinal: non-tender, soft Extremities: other (no edema) Results Result Diagram: 12/03/16 1205 12/03/16 1205 Results 24 hrs Laboratory Tests Test 12/02/16 20:55 12/03/16 07:37 12/03/16 11:19 12/03/16 12:05 Bedside Glucose 105 113 169 Anion Gap 18 H Basophils # 0.0 Basophils % 0.2 Blood Urea Nitrogen 30 H Calcium Level 9.5 Carbon Dioxide Level 29 Chloride Level 97 Creatinine 1.83 H Eosinophils # 0.2 Eosinophils % 4.4 Glucose Level 161 Hematocrit 36.0 L Hemoglobin 10.8 L Lymphocytes # 1.5 Lymphocytes % 31.1 Mean Corpuscular Hemoglobin 23.6 L Mean Corpuscular Hemoglobin Concent 30.0 L Mean Corpuscular Volume 78.8 L Mean Platelet Volume 8.9 Monocytes # 0.5 Monocytes % 10.6 Neutrophils # 2.5 Neutrophils % 53.5 Nucleated Red Blood Cells # 0.0 Nucleated Red Blood Cells % 0.0 Platelet Count 259 Potassium Level 4.5 Red Blood Count 4.57 L Red Cell Distribution Width 27.9 H Sodium Level 139 White Blood Count 4.7 L Test 12/03/16 17:03 Bedside Glucose 88 Medications Medications Current Medications Lorazepam 0.5 mg 0.5 mg Q6H PRN IV ANXIETY; Start 12/01/16 at 01:00 Levofloxacin/ Dextrose (Levaquin 750 Mg/ D5W 150 ml (Pmx)) 150 ml @ 100 mls/hr Q48H IVPB Last administered on 12/03/16 05:35; Admin Dose 100 MLS/HR; Start at 06:00 Hydralazine HCl (Apresoline) 10 mg Q6H PRN IV ELEVATED SYSTOLIC BP; Start 12/01 at 01:00 Nitroglycerin (Nitroglycerin (Sl Tab) 0.4 Mg) 1 tab Q5M PRN SL ANGINA; Start at 01:00 Ondansetron HCl (Zofran Inj) 4 mg Q6H PRN IV NAUSEA AND/OR VOMITING; Start at 01:00 Acetaminophen (Tylenol Tab) 650 mg Q6H PRN PO PAIN LEVEL 1-3 OR FEVER Last administered on 12/02/16 11:18; Admin Dose 650 MG; Start 12/01/16 at 01:00 Acetaminophen/ Hydrocodone Bitart ([place] (5/325)) 1 tab Q6H PRN PO MODERATE PAIN LEVEL 4-6 Last administered on 12/01/16 01:22; Admin Dose 1 TAB; Start at 01:00 Morphine Sulfate (morphine) 2 mg Q4H PRN IV SEVERE PAIN LEVEL 7-10; Start 12/01 at 01:00 Docusate Sodium (Colace) 100 mg Q12H PRN PO CONSTIPATION; Start 12/01/16 at 01: 00 Magnesium Hydroxide (Milk Of Mag) 30 ml DAILY PRN PO CONSTIPATION; Start at 01:00 Sodium Biphosphate/ Sodium Phosphate (Fleet Enema) 133 ml DAILY PRN [place] CONSTIPATION; Start 12/01/16 at 01:00 Heparin Sodium (Porcine) (Heparin (5000 Units/0.5 ml)) 5,000 unit Q12 SC Last administered on 12/03/16 08:26; Admin Dose 5,000 UNIT; Start 12/01/16 at 09:00 Cholecalciferol (Vitamin D) 5,000 unit DAILY PO Last administered on 12/03/16 08:20; Admin Dose 5,000 UNIT; Start 12/01/16 at 09:00 Folic Acid (Folic Acid) 1 mg DAILY PO Last administered on 12/03/16 08:21; Admin Dose 1 MG; Start 12/01/16 at 09:00 Insulin Detemir (Levemir) 50 unit DAILY SC Last administered on 12/03/16 08:27 ; Admin Dose 50 UNIT; Start 12/01/16 at 09:00 Potassium Chloride (Micro-K) 8 meq DAILY PO Last administered on 12/03/16 08: 21; Admin Dose 8 MEQ; Start 12/01/16 at 09:00 Pantoprazole (Protonix Tab) 40 mg DAILY@06 PO Last administered on 12/03/16 05 :35; Admin Dose 40 MG; Start 12/01/16 at 06:00 Diagnostic Test (Pha) (Accucheck) 1 ea 02 XX ; Start 12/02/16 at 02:00 Miscellaneous Information 1 ea NOTE XX ; Start 12/01/16 at 05:30 Glucose (Glutose) 15 gm Q15M PRN PO DECREASED GLUCOSE; Start 12/01/16 at 05:30 Glucose (Glutose) 22.5 gm Q15M PRN PO DECREASED GLUCOSE; Start 12/01/16 at 05: 30 Dextrose (D50w Syringe) 25 ml Q15M PRN IV DECREASED GLUCOSE; Start 12/01/16 at 05:30 Dextrose (D50w Syringe) 50 ml Q15M PRN IV DECREASED GLUCOSE; Start 12/01/16 at 05:30 Glucagon (Glucagen) 1 mg Q15M PRN IM DECREASED GLUCOSE; Start 12/01/16 at 05:30 Glucose (Glutose) 15 gm Q15M PRN BUCCAL DECREASED GLUCOSE; Start 12/01/16 at 05 :30 Docusate Sodium 100 mg 100 mg BID PO Last administered on 12/03/16 08:21; Admin Dose 100 MG; Start 12/01/16 at 21:00 Ferric Sodium Gluconate Complex/ Sodium Chloride (Ferrlecit/NS) 110 ml @ 110 mls/hr Q24H IVPB Last administered on 12/03/16 12:01; Admin Dose 110 MLS/HR; Start 12/02/16 at 11:00; Stop 12/06/16 at 11:59 Aspirin (Halfprin) 81 mg DAILY PO Last administered on 12/03/16 08:21; Admin Dose 81 MG; Start 12/03/16 at 09:00 Atorvastatin Calcium (Lipitor) 20 mg HS PO Last administered on 12/02/16 21:15 ; Admin Dose 20 MG; Start 12/02/16 at 21:00 Guaifenesin/ Dextromethorphan (Mucinex Dm) 1 tab BID PO Last administered on 08:20; Admin Dose 1 TAB; Start 12/02/16 at 23:30 Salmeterol Xinafoate/ Fluticasone (Advair 100/50 Diskus) 1 inh BID INH Last administered on 12/03/16 08:20; Admin Dose 1 INH; Start 12/02/16 at 23:30 Carvedilol (Coreg) 12.5 mg BID PO ; Start 12/03/16 at 21:00 Furosemide (Lasix) 80 mg DAILY PO ; Start 12/04/16 at 09:00 MICHAEL BOUCHER MD Dec 03, 2016 18:51
[2016-12-03] MEDS ORDERED: ALBUTEROL HFA 8 GM INHALER INH PRN (19:00)
[2016-12-03] MEDS: ATORVASTATIN 20 MG TAB PO SCH (20:55)
[2016-12-04] VITALS (12 sets, daily range): BP systolic 108–182; BP diastolic 55–92; PULSE 78–95; RESP 18–20
--- NOTE | 2016-12-04 01:10 | RADRPT ---
PROCEDURE: XR Chest. CLINICAL INDICATION: Cough. TECHNIQUE: Single frontal view of the chest was obtained COMPARISON: 11/30/2016. FINDINGS: Cardiomegaly and atherosclerotic calcifications in the thoracic aorta. Mild fluid likely present in the horizontal fissure at the right lung base, new or interval. Otherwise, no pleural fluid is sindy ntified. The lungs are clear. There is no pneumothorax. IMPRESSION: Mild pleural fluid at the right lung base. RPTAT: [facility] Physician Shivam Date Time Electronically viewed and signed by Physician Shivam on 12/04/2016 01:10 RS/
[2016-12-04] MEDS: LORAZEPAM 2 MG INJ IV PRN ×2 (01:16→21:47)
[2016-12-04] MEDS: ACCU-CHEK XX SCH (01:20)
[2016-12-04] MEDS: HYDROCODONE/APAP (5/325) TAB PO PRN (01:28)
[2016-12-04] MEDS: PANTOPRAZOLE (EC) 40 MG TAB PO SCH (07:37)
[2016-12-04] MEDS: INSULIN ASPART [NOVOLOG] 3 ML PEN SC SCH ×7 (07:55→20:52)
[2016-12-04 07:57] LABS: MAGNESIUM 1.8 mg/dl (1.7-2.5); PHOSPHORUS 3.2 mg/dl (2.5-4.9)
[2016-12-04 08:15] LABS: ADD SCAN DIFF NO
[2016-12-04] MEDS: THIAMINE 100 MG TAB PO SCH (08:17)
[2016-12-04] MEDS: GUAIFENESIN/DM (SR) TAB PO SCH ×2 (08:17→20:53)
[2016-12-04] MEDS: ASPIRIN (EC) 81 MG TAB PO SCH (08:17)
[2016-12-04] MEDS: FOLIC ACID 1 MG TAB PO SCH (08:17)
[2016-12-04] MEDS: CHOLECALCIFEROL 1,000 UNIT TAB PO SCH (08:17)
[2016-12-04] MEDS: DOCUSATE SODIUM 100 MG CAP PO SCH ×2 (08:17→20:53)
[2016-12-04] MEDS: POTASSIUM CHLORIDE (SR) 8 MEQ CAP PO SCH (08:17)
[2016-12-04] MEDS: FUROSEMIDE 40 MG TAB PO SCH (08:18)
[2016-12-04 08:24] LABS: ABNORMAL IP MESSAGE 1; BASOPHILS % 0.4 % (0.0-2.0); EOSINOPHILS # 0.2 10^3/ul (0.0-0.5); EOSINOPHILS % 4.2 % (0.0-7.0); HEMATOCRIT 35.9 % (42.0-52.0); HEMOGLOBIN 10.6 g/dl (14.0-18.0); LYMPHOCYTES # 1.8 10^3/ul (0.8-2.9); LYMPHOCYTES % 39.1 % (15.0-51.0); MEAN CORPUSCULAR HEMOGLOBIN 23.5 pg (29.0-33.0); MEAN CORPUSCULAR HGB CONC 29.5 g/dl (32.0-37.0); MEAN CORPUSCULAR VOLUME 79.6 fl (82.0-101.0); MEAN PLATELET VOLUME 9.3 fl (7.4-10.4); MONOCYTE # 0.5 10^3/ul (0.3-0.9); NEUTROPHIL # 2.1 10^3/ul (1.6-7.5); NEUTROPHILS % 46.1 % (39.0-77.0); PLATELET COUNT 274 10^3/UL (140-415); RED BLOOD COUNT 4.51 10^6/ul (4.70-6.10); RED CELL DISTRIBUTION WIDTH 27.9 % (11.5-14.5); WHITE BLOOD COUNT 4.5 10^3/ul (4.8-10.8)
[2016-12-04] MEDS: SALMETEROL/FLUTICASONE 100/50 INHA INH SCH ×2 (08:31→20:52)
[2016-12-04] MEDS: HEPARIN 5,000 UNIT/0.5 ML SYG SC SCH ×2 (08:32→20:59)
[2016-12-04] MEDS: INSULIN DETEMIR [LEVEMIR] 3ML CART SC SCH (08:33)
[2016-12-04 08:37] LABS: POTASSIUM 4.5 mmol/L (3.5-5.1)
[2016-12-04 08:39] LABS: CREATININE 1.83 mg/dl (0.61-1.24)
[2016-12-04 08:40] LABS: CALCIUM 9.6 mg/dl (8.4-10.2)
--- NOTE | 2016-12-04 11:36 | CONS ---
Date/Time of Note Date/Time of Note DATE: 12/04/16 TIME: 11:34 Assessment/Plan Assessment/Plan Additional Assessment/Plan 1. Acute kidney injury versus acute kidney injury on chronic kidney disease, stage III to IV, secondary to hemodynamics in the setting of congestive heart failure and pneumonia. 2. Possible H/o chronic kidney disease, stage III to IV, secondary to diabetic nephropathy. 3. History of coronary artery disease status post previous cardiac catheterization. 4. History of hypertension. 5. History of type 2 diabetes mellitus. 6. Hyperkalemia secondary to acute kidney injury. 7. History of benign prostatic hypertrophy status post transurethral resection of the prostate in the past. 8. Iron deficiency anemia, with iron saturation 7% PLAN: IV iron x 5 days Cr improved with IV lasix diuresis - Cr 1.83 , possibly close to his Baseline Cr makign good urine output will continue to follow up Consultation Date/Type/Reason Admit Date/Time Nov 30, 2016 at 22:45 Initial Consult Date 12/01/16 Type of Consultation: NEPHROLOGY Referring Provider: CARMITA DAVISON 24 HR Interval Summary Free Text/Dictation Cr has been around 1.83, stable, BP stable, Less SOB Exam/Review of Systems Vital Signs Vitals Vital Signs Date Time Temp Pulse Resp B/P Pulse Ox O2 Delivery O2 Flow Rate FiO2 12/04/16 11:21 98.5 74 20 124/58 100 12/04/16 08:04 3.0 12/04/16 07:30 Nasal Cannula 12/04/16 04:46 21 Intake and Output 12/03/16 12/03/16 12/04/16 15:00 23:00 07:00 Intake Total 110 ml 1000 ml Output Total 800 ml Balance 110 ml 200 ml Exam GENERAL: Awake, alert, in no acute distress. HEENT: Normal. Oropharynx clear. NECK: Supple, no JVD, no lymphadenopathy. LUNGS: Clear to auscultation. Decreased breath sounds at both lung bases. HEART: S1, S2, with regular rhythm, no murmur. ABDOMEN: Soft, nontender, nondistended. Bowel sounds are present. EXTREMITIES: No clubbing, cyanosis, or edema. The patient has bibasilar crackles present on the lung exam. SKIN: No rash. PSYCHIATRIC: Appropriate affect and mood. Results Result Diagram: 12/04/16 0645 12/04/16 0645 Results 24 hrs Laboratory Tests Test 12/03/16 12:05 12/03/16 17:03 12/03/16 20:53 12/04/16 06:45 Anion Gap 18 H 19 H Basophils # 0.0 0.0 Basophils % 0.2 0.4 Blood Urea Nitrogen 30 H 33 H Calcium Level 9.5 9.6 Carbon Dioxide Level 29 26 Chloride Level 97 102 Creatinine 1.83 H 1.83 H Eosinophils # 0.2 0.2 Eosinophils % 4.4 4.2 Glucose Level 161 73 # Hematocrit 36.0 L 35.9 L Hemoglobin 10.8 L 10.6 L Lymphocytes # 1.5 1.8 Lymphocytes % 31.1 39.1 Mean Corpuscular Hemoglobin 23.6 L 23.5 L Mean Corpuscular Hemoglobin Concent 30.0 L 29.5 L Mean Corpuscular Volume 78.8 L 79.6 L Mean Platelet Volume 8.9 9.3 Monocytes # 0.5 0.5 Monocytes % 10.6 10.0 Neutrophils # 2.5 2.1 Neutrophils % 53.5 46.1 Nucleated Red Blood Cells # 0.0 0.0 Nucleated Red Blood Cells % 0.0 0.0 Platelet Count 259 274 Potassium Level 4.5 4.5 Red Blood Count 4.57 L 4.51 L Red Cell Distribution Width 27.9 H 27.9 H Sodium Level 139 142 White Blood Count 4.7 L 4.5 L Bedside Glucose 88 77 Magnesium Level 1.8 Phosphorus Level 3.2 Test 12/04/16 07:57 Bedside Glucose 85 Medications Medications Current Medications Lorazepam (Ativan) 0.5 mg Q6H PRN IV ANXIETY Last administered on 12/04/16t 01: 16; Admin Dose 0.5 MG; Start 12/01/16 at 01:00 Hydralazine HCl (Apresoline) 10 mg Q6H PRN IV ELEVATED SYSTOLIC BP; Start 12/01 at 01:00 Nitroglycerin (Nitroglycerin (Sl Tab) 0.4 Mg) 1 tab Q5M PRN SL ANGINA; Start at 01:00 Ondansetron HCl (Zofran Inj) 4 mg Q6H PRN IV NAUSEA AND/OR VOMITING; Start at 01:00 Acetaminophen (Tylenol Tab) 650 mg Q6H PRN PO PAIN LEVEL 1-3 OR FEVER Last administered on 12/02/16 11:18; Admin Dose 650 MG; Start 12/01/16 at 01:00 Acetaminophen/ Hydrocodone Bitart ([place] (5/325)) 1 tab Q6H PRN PO MODERATE PAIN LEVEL 4-6 Last administered on 12/04/16 01:28; Admin Dose 1 TAB; Start at 01:00 Morphine Sulfate (morphine) 2 mg Q4H PRN IV SEVERE PAIN LEVEL 7-10; Start 12/01 at 01:00 Docusate Sodium (Colace) 100 mg Q12H PRN PO CONSTIPATION; Start 12/01/16 at 01: 00 Magnesium Hydroxide (Milk Of Mag) 30 ml DAILY PRN PO CONSTIPATION; Start at 01:00 Sodium Biphosphate/ Sodium Phosphate (Fleet Enema) 133 ml DAILY PRN [place] CONSTIPATION; Start 12/01/16 at 01:00 Heparin Sodium (Porcine) (Heparin (5000 Units/0.5 ml)) 5,000 unit Q12 SC Last administered on 12/04/16 08:32; Admin Dose 5,000 UNIT; Start 12/01/16 at 09:00 Cholecalciferol (Vitamin D) 5,000 unit DAILY PO Last administered on 12/04/16 08:17; Admin Dose 5,000 UNIT; Start 12/01/16 at 09:00 Folic Acid (Folic Acid) 1 mg DAILY PO Last administered on 12/04/16 08:17; Admin Dose 1 MG; Start 12/01/16 at 09:00 Insulin Detemir (Levemir) 50 unit DAILY SC Last administered on 12/04/16 08:33 ; Admin Dose 50 UNIT; Start 12/01/16 at 09:00 Potassium Chloride (Micro-K) 8 meq DAILY PO Last administered on 12/04/16 08: 17; Admin Dose 8 MEQ; Start 12/01/16 at 09:00 Pantoprazole (Protonix Tab) 40 mg DAILY@06 PO Last administered on 12/04/16 07 :37; Admin Dose 40 MG; Start 12/01/16 at 06:00 Diagnostic Test (Pha) (Accucheck) 1 ea 02 XX ; Start 12/02/16 at 02:00 Miscellaneous Information 1 ea NOTE XX ; Start 12/01/16 at 05:30 Glucose (Glutose) 15 gm Q15M PRN PO DECREASED GLUCOSE; Start 12/01/16 at 05:30 Glucose (Glutose) 22.5 gm Q15M PRN PO DECREASED GLUCOSE; Start 12/01/16 at 05: 30 Dextrose (D50w Syringe) 25 ml Q15M PRN IV DECREASED GLUCOSE; Start 12/01/16 at 05:30 Dextrose (D50w Syringe) 50 ml Q15M PRN IV DECREASED GLUCOSE; Start 12/01/16 at 05:30 Glucagon (Glucagen) 1 mg Q15M PRN IM DECREASED GLUCOSE; Start 12/01/16 at 05:30 Glucose (Glutose) 15 gm Q15M PRN BUCCAL DECREASED GLUCOSE; Start 12/01/16 at 05 :30 Docusate Sodium 100 mg 100 mg BID PO Last administered on 12/04/16 08:17; Admin Dose 100 MG; Start 12/01/16 at 21:00 Ferric Sodium Gluconate Complex/ Sodium Chloride (Ferrlecit/NS) 110 ml @ 110 mls/hr Q24H IVPB Last administered on 12/03/16 12:01; Admin Dose 110 MLS/HR; Start 12/02/16 at 11:00; Stop 12/06/16 at 11:59 Aspirin (Halfprin) 81 mg DAILY PO Last administered on 12/04/16 08:17; Admin Dose 81 MG; Start 12/03/16 at 09:00 Atorvastatin Calcium (Lipitor) 20 mg HS PO Last administered on 12/03/16 20:55 ; Admin Dose 20 MG; Start 12/02/16 at 21:00 Guaifenesin/ Dextromethorphan (Mucinex Dm) 1 tab BID PO Last administered on 08:17; Admin Dose 1 TAB; Start 12/02/16 at 23:30 Salmeterol Xinafoate/ Fluticasone (Advair 100/50 Diskus) 1 inh BID INH Last administered on 12/04/16 08:31; Admin Dose 1 INH; Start 12/02/16 at 23:30 Carvedilol (Coreg) 12.5 mg BID PO Last administered on 12/04/16 08:18; Admin Dose 12.5 MG; Start 12/03/16 at 21:00 Furosemide (Lasix) 80 mg DAILY PO Last administered on 12/04/16 08:18; Admin Dose 80 MG; Start 12/04/16 at 09:00 Thiamine HCl (Vitamin B1) 100 mg DAILY PO Last administered on 12/04/16 08:17 ; Admin Dose 100 MG; Start 12/04/16 at 09:00 Levofloxacin (Levaquin) 750 mg Q48H PO ; Start 12/05/16 at 06:00 CORNELIO JOSÉ MD Dec 04, 2016 11:36
[2016-12-04] MEDS: SOD FERRIC GLUC COMPLX 125 MG in SOD CHLORIDE 0.9% 100 ML IVPB SCH (11:54)
--- NOTE | 2016-12-04 18:01 | PN ---
Date/Time of Note Date/Time of Note DATE: 12/04/16 TIME: 17:59 Assessment/Plan VTE Prophylaxis VTE Prophylaxis Intervention: LMWH Lines/Catheters IV [facility] Sal[facility] Urinary Cath still in place: No Assessment/Plan Chief Complaint/Hosp Course Subjective: Doing fine. No distress. Objective: Vital signs stable. Sr PE No pallor JVD Reg Clear Benign No edema A/P 1) Ac decompensated CHF- systolic ~45%; stable, improved. 2) Chr Pericardial effusion. etio? chf/uremic/vs etoh 3) ARF/raimundo; improved post diuretics. dc home soon. 4) CAD 5) Recent fever. viral process? 6) Past tobacco 7) BPH 8) PAD/ ho cea 9) Past etoh? 10) Anemia; appears asymptomatic, will benefit from iron 11) Low hdl/ Htn 12) Dm 9.0! Problems: Exam/Review of Systems Vital Signs Vitals Vital Signs Date Time Temp Pulse Resp B/P Pulse Ox O2 Delivery O2 Flow Rate FiO2 12/04/16 16:36 81 12/04/16 15:32 97.6 20 136/67 100 12/04/16 08:04 3.0 12/04/16 07:30 Nasal Cannula 12/04/16 04:46 21 Intake and Output 12/03/16 12/03/16 12/04/16 15:00 23:00 07:00 Intake Total 110 ml 1000 ml Output Total 800 ml Balance 110 ml 200 ml Results Result Diagram: 12/04/16 0645 12/04/16 0645 Results 24 hrs Laboratory Tests Test 12/03/16 20:53 12/04/16 06:45 12/04/16 07:57 12/04/16 12:03 Bedside Glucose 77 85 157 Anion Gap 19 H Basophils # 0.0 Basophils % 0.4 Blood Urea Nitrogen 33 H Calcium Level 9.6 Carbon Dioxide Level 26 Chloride Level 102 Creatinine 1.83 H Eosinophils # 0.2 Eosinophils % 4.2 Glucose Level 73 # Hematocrit 35.9 L Hemoglobin 10.6 L Lymphocytes # 1.8 Lymphocytes % 39.1 Magnesium Level 1.8 Mean Corpuscular Hemoglobin 23.5 L Mean Corpuscular Hemoglobin Concent 29.5 L Mean Corpuscular Volume 79.6 L Mean Platelet Volume 9.3 Monocytes # 0.5 Monocytes % 10.0 Neutrophils # 2.1 Neutrophils % 46.1 Nucleated Red Blood Cells # 0.0 Nucleated Red Blood Cells % 0.0 Phosphorus Level 3.2 Platelet Count 274 Potassium Level 4.5 Red Blood Count 4.51 L Red Cell Distribution Width 27.9 H Sodium Level 142 White Blood Count 4.5 L Test 12/04/16 17:33 Bedside Glucose 106 Medications Medications Current Medications Lorazepam (Ativan) 0.5 mg Q6H PRN IV ANXIETY Last administered on 12/04/16 01: 16; Admin Dose 0.5 MG; Start 12/01/16 at 01:00 Hydralazine HCl (Apresoline) 10 mg Q6H PRN IV ELEVATED SYSTOLIC BP; Start 12/01 at 01:00 Nitroglycerin (Nitroglycerin (Sl Tab) 0.4 Mg) 1 tab Q5M PRN SL ANGINA; Start at 01:00 Ondansetron HCl (Zofran Inj) 4 mg Q6H PRN IV NAUSEA AND/OR VOMITING; Start at 01:00 Acetaminophen (Tylenol Tab) 650 mg Q6H PRN PO PAIN LEVEL 1-3 OR FEVER Last administered on 12/02/16 11:18; Admin Dose 650 MG; Start 12/01/16 at 01:00 Acetaminophen/ Hydrocodone Bitart ([place] (5/325)) 1 tab Q6H PRN PO MODERATE PAIN LEVEL 4-6 Last administered on 12/04/16 01:28; Admin Dose 1 TAB; Start at 01:00 Morphine Sulfate (morphine) 2 mg Q4H PRN IV SEVERE PAIN LEVEL 7-10; Start 12/01 at 01:00 Docusate Sodium (Colace) 100 mg Q12H PRN PO CONSTIPATION; Start 12/01/16 at 01: 00 Magnesium Hydroxide (Milk Of Mag) 30 ml DAILY PRN PO CONSTIPATION; Start at 01:00 Sodium Biphosphate/ Sodium Phosphate (Fleet Enema) 133 ml DAILY PRN [place] CONSTIPATION; Start 12/01/16 at 01:00 Heparin Sodium (Porcine) (Heparin (5000 Units/0.5 ml)) 5,000 unit Q12 SC Last administered on 12/04/16 08:32; Admin Dose 5,000 UNIT; Start 12/01/16 at 09:00 Cholecalciferol (Vitamin D) 5,000 unit DAILY PO Last administered on 12/04/16 08:17; Admin Dose 5,000 UNIT; Start 12/01/16 at 09:00 Folic Acid (Folic Acid) 1 mg DAILY PO Last administered on 12/04/16 08:17; Admin Dose 1 MG; Start 12/01/16 at 09:00 Insulin Detemir (Levemir) 50 unit DAILY SC Last administered on 12/04/16 08:33 ; Admin Dose 50 UNIT; Start 12/01/16 at 09:00 Potassium Chloride (Micro-K) 8 meq DAILY PO Last administered on 12/04/16 08: 17; Admin Dose 8 MEQ; Start 12/01/16 at 09:00 Pantoprazole (Protonix Tab) 40 mg DAILY@06 PO Last administered on 12/04/16 07 :37; Admin Dose 40 MG; Start 12/01/16 at 06:00 Diagnostic Test (Pha) (Accucheck) 1 ea 02 XX ; Start 12/02/16 at 02:00 Miscellaneous Information 1 ea NOTE XX ; Start 12/01/16 at 05:30 Glucose (Glutose) 15 gm Q15M PRN PO DECREASED GLUCOSE; Start 12/01/16 at 05:30 Glucose (Glutose) 22.5 gm Q15M PRN PO DECREASED GLUCOSE; Start 12/01/16 at 05: 30 Dextrose (D50w Syringe) 25 ml Q15M PRN IV DECREASED GLUCOSE; Start 12/01/16 at 05:30 Dextrose (D50w Syringe) 50 ml Q15M PRN IV DECREASED GLUCOSE; Start 12/01/16 at 05:30 Glucagon (Glucagen) 1 mg Q15M PRN IM DECREASED GLUCOSE; Start 12/01/16 at 05:30 Glucose (Glutose) 15 gm Q15M PRN BUCCAL DECREASED GLUCOSE; Start 12/01/16 at 05 :30 Docusate Sodium 100 mg 100 mg BID PO Last administered on 12/04/16 08:17; Admin Dose 100 MG; Start 12/01/16 at 21:00 Ferric Sodium Gluconate Complex/ Sodium Chloride (Ferrlecit/NS) 110 ml @ 110 mls/hr Q24H IVPB Last administered on 12/04/16 11:54; Admin Dose 110 MLS/HR; Start 12/02/16 at 11:00; Stop 12/06/16 at 11:59 Aspirin (Halfprin) 81 mg DAILY PO Last administered on 12/04/16 08:17; Admin Dose 81 MG; Start 12/03/16 at 09:00 Atorvastatin Calcium (Lipitor) 20 mg HS PO Last administered on 12/03/16 20:55 ; Admin Dose 20 MG; Start 12/02/16 at 21:00 Guaifenesin/ Dextromethorphan (Mucinex Dm) 1 tab BID PO Last administered on 08:17; Admin Dose 1 TAB; Start 12/02/16 at 23:30 Salmeterol Xinafoate/ Fluticasone (Advair 100/50 Diskus) 1 inh BID INH Last administered on 12/04/16 08:31; Admin Dose 1 INH; Start 12/02/16 at 23:30 Carvedilol (Coreg) 12.5 mg BID PO Last administered on 12/04/16 08:18; Admin Dose 12.5 MG; Start 12/03/16 at 21:00 Furosemide (Lasix) 80 mg DAILY PO Last administered on 12/04/16 08:18; Admin Dose 80 MG; Start 12/04/16 at 09:00 Thiamine HCl (Vitamin B1) 100 mg DAILY PO Last administered on 12/04/16 08:17 ; Admin Dose 100 MG; Start 12/04/16 at 09:00 Levofloxacin (Levaquin) 750 mg Q48H PO ; Start 12/05/16 at 06:00 MICHAEL BOUCHER MD Dec 04, 2016 18:01
[2016-12-04] MEDS: ATORVASTATIN 20 MG TAB PO SCH (20:53)
[2016-12-05] VITALS (9 sets, daily range): BP systolic 129–155; BP diastolic 58–81; PULSE 77–90; RESP 18–20
[2016-12-05] MEDS: ACCU-CHEK XX SCH (02:00)
[2016-12-05] MEDS: PANTOPRAZOLE (EC) 40 MG TAB PO SCH (05:53)
[2016-12-05] MEDS ORDERED: LEVOFLOXACIN 750 MG TABLET PO SCH (06:00)
[2016-12-05 07:44] LABS: MAGNESIUM 1.8 mg/dl (1.7-2.5); PHOSPHORUS 3.1 mg/dl (2.5-4.9)
[2016-12-05] MEDS: THIAMINE 100 MG TAB PO SCH (08:22)
[2016-12-05] MEDS: GUAIFENESIN/DM (SR) TAB PO SCH (08:22)
[2016-12-05] MEDS: POTASSIUM CHLORIDE (SR) 8 MEQ CAP PO SCH (08:22)
[2016-12-05] MEDS: ASPIRIN (EC) 81 MG TAB PO SCH (08:22)
[2016-12-05] MEDS: CHOLECALCIFEROL 1,000 UNIT TAB PO SCH (08:22)
[2016-12-05] MEDS: FOLIC ACID 1 MG TAB PO SCH (08:22)
[2016-12-05] MEDS: DOCUSATE SODIUM 100 MG CAP PO SCH (08:22)
[2016-12-05] MEDS: SALMETEROL/FLUTICASONE 100/50 INHA INH SCH (08:23)
[2016-12-05] MEDS: FUROSEMIDE 40 MG TAB PO SCH (08:23)
[2016-12-05] MEDS: INSULIN ASPART [NOVOLOG] 3 ML PEN SC SCH ×4 (08:26→11:27)
[2016-12-05] MEDS: HEPARIN 5,000 UNIT/0.5 ML SYG SC SCH (08:33)
--- NOTE | 2016-12-05 08:43 | CONS ---
Date/Time of Note Date/Time of Note DATE: 12/05/16 TIME: 08:39 Assessment/Plan Assessment/Plan Chief Complaint/Hosp Course # Acute on chronic systolic heart failure # h/o of NICM- # Moderate pericardial effusion- chronic, no tamponade on exam/by echo # Moderate coronary artery disease - last eval 2014 # Acute Kidney Injury/Chronic kidney disease: increase in creatinine noted, improving with diuresis # Diabetes mellitus on therapy # Hypertension uncontrolled # Hyperlipidemia - on statin # Peripheral vascular disease - s/p CEA Recommendations: - con lasix 80mg daily to keep event to slight negative - cont coreg at home dose 12.5mg po bid - acei held due to a/ckd, would hope to restart when fxn improves given cardiomyopathy/dm2. defer to renal - cont asa/statin - Problems: Consultation Date/Type/Reason Admit Date/Time Nov 30, 2016 at 22:45 Initial Consult Date 12/02/16 Type of Consultation: cardiology Referring Provider: CARMITA DAVISON 24 HR Interval Summary Free Text/Dictation pt seen 12/04. no acute events. pt states feeling better, no cp, mild sob. no palp, dizziness tele reviewed: no events. sinus rbbb Constitutional: improved Detailed Summary Respiratory: shortness of breath Cardiovascular: no complaints Gastrointestinal: no complaints Exam/Review of Systems Vital Signs Vitals Vital Signs Date Time Temp Pulse Resp B/P Pulse Ox O2 Delivery O2 Flow Rate FiO2 12/05/16 08:24 85 12/05/16 07:10 98.4 18 133/65 93 12/04/16 22:50 21 12/04/16 08:04 3.0 12/04/16 07:30 Nasal Cannula Intake and Output 12/04/16 12/04/16 12/05/16 15:00 23:00 07:00 Intake Total 1300 ml 300 ml Output Total 800 ml 700 ml Balance 500 ml -400 ml Exam :Constitutional: alert, oriented Psych: no complaints, nl mood/affect Head: normocephalic Eyes: nl conjunctiva ENMT: nl external ears & nose Neck: supple, non-tender Respiratory: poor air movement, otherwise cta Cardiovascular: regular rate and rhythm, nl pulses, No edema, No S3 Gastrointestinal: soft, nl liver, spleen, non-tender Musculoskeletal: nl extremities to inspection Extremities: normal pulses Neurological: nl mental status Results Result Diagram: 3/21/17 0645 12/04/16 0645 Results 24 hrs Laboratory Tests Test 12/04/16 12:03 12/04/16 17:33 12/04/16 20:51 12/05/16 07:15 Bedside Glucose 157 106 100 Magnesium Level 1.8 Phosphorus Level 3.1 Test 12/05/16 08:06 Bedside Glucose 142 Medications Medications Current Medications Lorazepam (Ativan) 0.5 mg Q6H PRN IV ANXIETY Last administered on 12/04/16 21: 47; Admin Dose 0.5 MG; Start 12/01/16 at 01:00 Hydralazine HCl (Apresoline) 10 mg Q6H PRN IV ELEVATED SYSTOLIC BP; Start 12/01 at 01:00 Nitroglycerin (Nitroglycerin (Sl Tab) 0.4 Mg) 1 tab Q5M PRN SL ANGINA; Start at 01:00 Ondansetron HCl (Zofran Inj) 4 mg Q6H PRN IV NAUSEA AND/OR VOMITING; Start at 01:00 Acetaminophen (Tylenol Tab) 650 mg Q6H PRN PO PAIN LEVEL 1-3 OR FEVER Last administered on 12/02/16 11:18; Admin Dose 650 MG; Start 12/01/16 at 01:00 Acetaminophen/ Hydrocodone Bitart ([place] (5/325)) 1 tab Q6H PRN PO MODERATE PAIN LEVEL 4-6 Last administered on 12/04/16 01:28; Admin Dose 1 TAB; Start at 01:00 Morphine Sulfate (morphine) 2 mg Q4H PRN IV SEVERE PAIN LEVEL 7-10; Start 12/01 at 01:00 Docusate Sodium (Colace) 100 mg Q12H PRN PO CONSTIPATION; Start 12/01/16 at 01: 00 Magnesium Hydroxide (Milk Of Mag) 30 ml DAILY PRN PO CONSTIPATION; Start at 01:00 Sodium Biphosphate/ Sodium Phosphate (Fleet Enema) 133 ml DAILY PRN OR CONSTIPATION; Start 12/01/16 at 01:00 Heparin Sodium (Porcine) (Heparin (5000 Units/0.5 ml)) 5,000 unit Q12 SC Last administered on 12/05/16 08:33; Admin Dose 5,000 UNIT; Start 12/01/16 at 09:00 Cholecalciferol (Vitamin D) 5,000 unit DAILY PO Last administered on 12/05/16 08:22; Admin Dose 5,000 UNIT; Start 12/01/16 at 09:00 Folic Acid (Folic Acid) 1 mg DAILY PO Last administered on 12/05/16 08:22; Admin Dose 1 MG; Start 12/01/16 at 09:00 Potassium Chloride (Micro-K) 8 meq DAILY PO Last administered on 12/05/16 08: 22; Admin Dose 8 MEQ; Start 12/01/16 at 09:00 Pantoprazole (Protonix Tab) 40 mg DAILY@06 PO Last administered on 12/05/16 05 :53; Admin Dose 40 MG; Start 12/01/16 at 06:00 Diagnostic Test (Pha) (Accucheck) 1 ea 02 XX ; Start 12/02/16 at 02:00 Miscellaneous Information 1 ea NOTE XX ; Start 12/01/16 at 05:30 Glucose (Glutose) 15 gm Q15M PRN PO DECREASED GLUCOSE; Start 12/01/16 at 05:30 Glucose (Glutose) 22.5 gm Q15M PRN PO DECREASED GLUCOSE; Start 12/01/16 at 05: 30 Dextrose (D50w Syringe) 25 ml Q15M PRN IV DECREASED GLUCOSE; Start 12/01/16 at 05:30 Dextrose (D50w Syringe) 50 ml Q15M PRN IV DECREASED GLUCOSE; Start 12/01/16 at 05:30 Glucagon (Glucagen) 1 mg Q15M PRN IM DECREASED GLUCOSE; Start 12/01/16 at 05:30 Glucose (Glutose) 15 gm Q15M PRN BUCCAL DECREASED GLUCOSE; Start 12/01/16 at 05 :30 Docusate Sodium 100 mg 100 mg BID PO Last administered on 12/05/16 08:22; Admin Dose 100 MG; Start 12/01/16 at 21:00 Ferric Sodium Gluconate Complex/ Sodium Chloride (Ferrlecit/NS) 110 ml @ 110 mls/hr Q24H IVPB Last administered on 12/04/16 11:54; Admin Dose 110 MLS/HR; Start 12/02/16 at 11:00; Stop 12/06/16 at 11:59 Aspirin (Halfprin) 81 mg DAILY PO Last administered on 12/05/16 08:22; Admin Dose 81 MG; Start 12/03/16 at 09:00 Atorvastatin Calcium (Lipitor) 20 mg HS PO Last administered on 12/04/16 20:53 ; Admin Dose 20 MG; Start 12/02/16 at 21:00 Guaifenesin/ Dextromethorphan (Mucinex Dm) 1 tab BID PO Last administered on 08:22; Admin Dose 1 TAB; Start 12/02/16 at 23:30 Salmeterol Xinafoate/ Fluticasone (Advair 100/50 Diskus) 1 inh BID INH Last administered on 12/05/16 08:23; Admin Dose 1 INH; Start 12/02/16 at 23:30 Carvedilol (Coreg) 12.5 mg BID PO Last administered on 12/05/16 08:23; Admin Dose 12.5 MG; Start 12/03/16 at 21:00 Furosemide (Lasix) 80 mg DAILY PO Last administered on 12/05/16 08:23; Admin Dose 80 MG; Start 12/04/16 at 09:00 Thiamine HCl (Vitamin B1) 100 mg DAILY PO Last administered on 12/05/16 08:22 ; Admin Dose 100 MG; Start 12/04/16 at 09:00 Levofloxacin (Levaquin) 750 mg Q48H PO Last administered on 12/05/16 05:53; Admin Dose 750 MG; Start 12/05/16 at 06:00 Insulin Detemir (Levemir) 40 unit DAILY SC Last administered on 12/05/16 08:32 ; Admin Dose 40 UNIT; Start 12/05/16 at 09:00 Procedures Procedures cxr images reviewed Mild fluid likely present in the horizontal fissure at the right lung base DOMENICO IRENE Dec 05, 2016 08:43
--- NOTE | 2016-12-05 08:46 | CONS ---
Date/Time of Note Date/Time of Note DATE: 12/05/16 TIME: 08:44 Assessment/Plan Assessment/Plan Chief Complaint/Hosp Course # Acute on chronic systolic heart failure # h/o of NICM- # Moderate pericardial effusion- chronic, no tamponade on exam/by echo # Moderate coronary artery disease - last eval 2014 # Acute Kidney Injury/Chronic kidney disease: increase in creatinine noted, back to baseline, renal following # Diabetes mellitus on therapy # Hypertension- improved cotnrol # Hyperlipidemia - on statin # Peripheral vascular disease - s/p CEA Recommendations: - con lasix 80mg daily to keep event to slight negative - cont coreg at home dose 12.5mg po bid - acei held due to a/ckd, would hope to restart when fxn improves given cardiomyopathy/dm2. defer to renal - cont asa/statin - low na diet - daily wts - f/u as outpatient Problems: Consultation Date/Type/Reason Admit Date/Time Nov 30, 2016 at 22:45 Initial Consult Date 12/02/16 Type of Consultation: cardiology Referring Provider: CARMITA DAVISON 24 HR Interval Summary Free Text/Dictation pt seen 12/05 am. doing well, asking to go home. denies any cp/sob. tele reviewed; no events, nsr, rbbb Constitutional: no complaints Detailed Summary Respiratory: no complaints Cardiovascular: no complaints Gastrointestinal: no complaints Exam/Review of Systems Vital Signs Vitals Vital Signs Date Time Temp Pulse Resp B/P Pulse Ox O2 Delivery O2 Flow Rate FiO2 12/05/16 08:24 85 12/05/16 07:10 98.4 18 133/65 93 12/04/16 22:50 21 12/04/16 08:04 3.0 12/04/16 07:30 Nasal Cannula Intake and Output 12/04/16 12/04/16 12/05/16 15:00 23:00 07:00 Intake Total 1300 ml 300 ml Output Total 800 ml 700 ml Balance 500 ml -400 ml Exam Constitutional: alert, oriented Psych: no complaints, nl mood/affect Head: normocephalic Eyes: nl conjunctiva ENMT: nl external ears & nose Neck: supple, non-tender Respiratory: decreased bs R base, otherwise cta Cardiovascular: regular rate and rhythm, nl pulses, No edema, No S3 Gastrointestinal: soft, nl liver, spleen, non-tender Musculoskeletal: nl extremities to inspection Extremities: normal pulses Neurological: nl mental status Results Result Diagram: 12/04/16 0645 12/04/16 0645 Results 24 hrs Laboratory Tests Test 12/04/16 12:03 12/04/16 17:33 12/04/16 20:51 12/05/16 07:15 Bedside Glucose 157 106 100 Magnesium Level 1.8 Phosphorus Level 3.1 Test 12/05/16 08:06 Bedside Glucose 142 Medications Medications Current Medications Lorazepam (Ativan) 0.5 mg Q6H PRN IV ANXIETY Last administered on 12/04/16 21: 47; Admin Dose 0.5 MG; Start 12/01/16 at 01:00 Hydralazine HCl (Apresoline) 10 mg Q6H PRN IV ELEVATED SYSTOLIC BP; Start 12/01 at 01:00 Nitroglycerin (Nitroglycerin (Sl Tab) 0.4 Mg) 1 tab Q5M PRN SL ANGINA; Start at 01:00 Ondansetron HCl (Zofran Inj) 4 mg Q6H PRN IV NAUSEA AND/OR VOMITING; Start at 01:00 Acetaminophen (Tylenol Tab) 650 mg Q6H PRN PO PAIN LEVEL 1-3 OR FEVER Last administered on 12/02/16 11:18; Admin Dose 650 MG; Start 12/01/16 at 01:00 Acetaminophen/ Hydrocodone Bitart ([place] (5/325)) 1 tab Q6H PRN PO MODERATE PAIN LEVEL 4-6 Last administered on 12/04/16 01:28; Admin Dose 1 TAB; Start at 01:00 Morphine Sulfate (morphine) 2 mg Q4H PRN IV SEVERE PAIN LEVEL 7-10; Start 12/01 at 01:00 Docusate Sodium (Colace) 100 mg Q12H PRN PO CONSTIPATION; Start 12/01/16 at 01: 00 Magnesium Hydroxide (Milk Of Mag) 30 ml DAILY PRN PO CONSTIPATION; Start at 01:00 Sodium Biphosphate/ Sodium Phosphate (Fleet Enema) 133 ml DAILY PRN RI CONSTIPATION; Start 12/01/16 at 01:00 Heparin Sodium (Porcine) (Heparin (5000 Units/0.5 ml)) 5,000 unit Q12 SC Last administered on 12/05/16 08:33; Admin Dose 5,000 UNIT; Start 12/01/16 at 09:00 Cholecalciferol (Vitamin D) 5,000 unit DAILY PO Last administered on 12/05/16 08:22; Admin Dose 5,000 UNIT; Start 12/01/16 at 09:00 Folic Acid (Folic Acid) 1 mg DAILY PO Last administered on 12/05/16 08:22; Admin Dose 1 MG; Start 12/01/16 at 09:00 Potassium Chloride (Micro-K) 8 meq DAILY PO Last administered on 12/05/16 08: 22; Admin Dose 8 MEQ; Start 12/01/16 at 09:00 Pantoprazole (Protonix Tab) 40 mg DAILY@06 PO Last administered on 12/05/16 05 :53; Admin Dose 40 MG; Start 12/01/16 at 06:00 Diagnostic Test (Pha) (Accucheck) 1 ea 02 XX ; Start 12/02/16 at 02:00 Miscellaneous Information 1 ea NOTE XX ; Start 12/01/16 at 05:30 Glucose (Glutose) 15 gm Q15M PRN PO DECREASED GLUCOSE; Start 12/01/16 at 05:30 Glucose (Glutose) 22.5 gm Q15M PRN PO DECREASED GLUCOSE; Start 12/01/16 at 05: 30 Dextrose (D50w Syringe) 25 ml Q15M PRN IV DECREASED GLUCOSE; Start 12/01/16 at 05:30 Dextrose (D50w Syringe) 50 ml Q15M PRN IV DECREASED GLUCOSE; Start 12/01/16 at 05:30 Glucagon (Glucagen) 1 mg Q15M PRN IM DECREASED GLUCOSE; Start 12/01/16 at 05:30 Glucose (Glutose) 15 gm Q15M PRN BUCCAL DECREASED GLUCOSE; Start 12/01/16 at 05 :30 Docusate Sodium 100 mg 100 mg BID PO Last administered on 12/05/16 08:22; Admin Dose 100 MG; Start 12/01/16 at 21:00 Ferric Sodium Gluconate Complex/ Sodium Chloride (Ferrlecit/NS) 110 ml @ 110 mls/hr Q24H IVPB Last administered on 12/04/16 11:54; Admin Dose 110 MLS/HR; Start 12/02/16 at 11:00; Stop 12/06/16 at 11:59 Aspirin (Halfprin) 81 mg DAILY PO Last administered on 12/05/16 08:22; Admin Dose 81 MG; Start 12/03/16 at 09:00 Atorvastatin Calcium (Lipitor) 20 mg HS PO Last administered on 12/04/16 20:53 ; Admin Dose 20 MG; Start 12/02/16 at 21:00 Guaifenesin/ Dextromethorphan (Mucinex Dm) 1 tab BID PO Last administered on 08:22; Admin Dose 1 TAB; Start 12/02/16 at 23:30 Salmeterol Xinafoate/ Fluticasone (Advair 100/50 Diskus) 1 inh BID INH Last administered on 12/05/16 08:23; Admin Dose 1 INH; Start 12/02/16 at 23:30 Carvedilol (Coreg) 12.5 mg BID PO Last administered on 12/05/16 08:23; Admin Dose 12.5 MG; Start 12/03/16 at 21:00 Furosemide (Lasix) 80 mg DAILY PO Last administered on 12/05/16 08:23; Admin Dose 80 MG; Start 12/04/16 at 09:00 Thiamine HCl (Vitamin B1) 100 mg DAILY PO Last administered on 12/05/16 08:22 ; Admin Dose 100 MG; Start 12/04/16 at 09:00 Levofloxacin (Levaquin) 750 mg Q48H PO Last administered on 12/05/16 05:53; Admin Dose 750 MG; Start 12/05/16 at 06:00 Insulin Detemir (Levemir) 40 unit DAILY SC Last administered on 12/05/16 08:32 ; Admin Dose 40 UNIT; Start 12/05/16 at 09:00 DOMENICO IRENE Dec 05, 2016 08:46
[2016-12-05] MEDS ORDERED: INSULIN DETEMIR [LEVEMIR] 3ML CART SC SCH (09:00)
[2016-12-05 09:06] LABS: ADD SCAN DIFF NO
[2016-12-05 09:13] LABS: ABNORMAL IP MESSAGE 1; BASOPHILS % 0.4 % (0.0-2.0); EOSINOPHILS # 0.3 10^3/ul (0.0-0.5); HEMATOCRIT 33.8 % (42.0-52.0); LYMPHOCYTES # 1.5 10^3/ul (0.8-2.9); LYMPHOCYTES % 29.1 % (15.0-51.0); MEAN CORPUSCULAR HEMOGLOBIN 23.7 pg (29.0-33.0); MEAN CORPUSCULAR HGB CONC 29.6 g/dl (32.0-37.0); MEAN CORPUSCULAR VOLUME 80.1 fl (82.0-101.0); MEAN PLATELET VOLUME 9.4 fl (7.4-10.4); MONOCYTE # 0.5 10^3/ul (0.3-0.9); MONOCYTES % 9.2 % (0.0-11.0); NEUTROPHIL # 2.9 10^3/ul (1.6-7.5); NEUTROPHILS % 55.7 % (39.0-77.0); PLATELET COUNT 264 10^3/UL (140-415); RED BLOOD COUNT 4.22 10^6/ul (4.70-6.10); RED CELL DISTRIBUTION WIDTH 27.9 % (11.5-14.5); WHITE BLOOD COUNT 5.2 10^3/ul (4.8-10.8)
[2016-12-05 09:18] LABS: POTASSIUM 4.5 mmol/L (3.5-5.1)
[2016-12-05 09:20] LABS: CREATININE 1.94 mg/dl (0.61-1.24)
[2016-12-05 09:22] LABS: CALCIUM 9.1 mg/dl (8.4-10.2)
[2016-12-05] MEDS ORDERED: LOSARTAN 25 MG TAB PO SCH (10:30)
--- NOTE | 2016-12-05 10:30 | CONS ---
Date/Time of Note Date/Time of Note DATE: 12/05/16 TIME: 10:29 Assessment/Plan Assessment/Plan Additional Assessment/Plan 1. Acute kidney injury versus acute kidney injury on chronic kidney disease, stage III to IV, secondary to hemodynamics in the setting of congestive heart failure and pneumonia. 2. Possible H/o chronic kidney disease, stage III to IV, secondary to diabetic nephropathy. 3. History of coronary artery disease status post previous cardiac catheterization. 4. History of hypertension. 5. History of type 2 diabetes mellitus. 6. Hyperkalemia secondary to acute kidney injury. 7. History of benign prostatic hypertrophy status post transurethral resection of the prostate in the past. 8. Iron deficiency anemia, with iron saturation 7% PLAN: IV iron x 5 days Cr improved with IV lasix diuresis - Cr 1.93, possibly close to his Baseline Cr - resume his home dose of losartan 25 mg po daily makign good urine output will continue to follow up Consultation Date/Type/Reason Admit Date/Time Nov 30, 2016 at 22:45 Initial Consult Date 12/01/16 Type of Consultation: NEPHROLOGY Reason for Consultation DIONNE on CKD, Cardiorenal syndrome , CHF Referring Provider: CARMITA DAVISON 24 HR Interval Summary Free Text/Dictation Cr 1.93- around his baseline , no SOB, doing onesimo r Exam/Review of Systems Vital Signs Vitals Vital Signs Date Time Temp Pulse Resp B/P Pulse Ox O2 Delivery O2 Flow Rate FiO2 12/05/16 08:24 85 12/05/16 07:10 98.4 18 133/65 93 12/04/16 22:50 21 12/04/16 08:04 3.0 12/04/16 07:30 Nasal Cannula Intake and Output 12/04/16 12/04/16 12/05/16 15:00 23:00 07:00 Intake Total 1300 ml 300 ml Output Total 800 ml 700 ml Balance 500 ml -400 ml Exam GENERAL: Awake, alert, in no acute distress. HEENT: Normal. Oropharynx clear. NECK: Supple, no JVD, no lymphadenopathy. LUNGS: Clear to auscultation. Decreased breath sounds at both lung bases. HEART: S1, S2, with regular rhythm, no murmur. ABDOMEN: Soft, nontender, nondistended. Bowel sounds are present. EXTREMITIES: No clubbing, cyanosis, or edema. The patient has bibasilar crackles present on the lung exam. SKIN: No rash. PSYCHIATRIC: Appropriate affect and mood. Results Result Diagram: 12/05/16 0715 12/05/16 0715 Results 24 hrs Laboratory Tests Test 12/04/16 12:03 12/04/16 17:33 12/04/16 20:51 12/05/16 07:15 Bedside Glucose 157 106 100 Anion Gap 18 H Basophils # 0.0 Basophils % 0.4 Blood Urea Nitrogen 36 H Calcium Level 9.1 Carbon Dioxide Level 25 Chloride Level 101 Creatinine 1.94 H Eosinophils # 0.3 Eosinophils % 5.0 Glucose Level 123 # Hematocrit 33.8 L Hemoglobin 10.0 L Lymphocytes # 1.5 Lymphocytes % 29.1 Magnesium Level 1.8 Mean Corpuscular Hemoglobin 23.7 L Mean Corpuscular Hemoglobin Concent 29.6 L Mean Corpuscular Volume 80.1 L Mean Platelet Volume 9.4 Monocytes # 0.5 Monocytes % 9.2 Neutrophils # 2.9 Neutrophils % 55.7 Nucleated Red Blood Cells # 0.0 Nucleated Red Blood Cells % 0.0 Phosphorus Level 3.1 Platelet Count 264 Potassium Level 4.5 Red Blood Count 4.22 L Red Cell Distribution Width 27.9 H Sodium Level 139 White Blood Count 5.2 Test 12/05/16 08:06 Bedside Glucose 142 Medications Medications Current Medications Lorazepam (Ativan) 0.5 mg Q6H PRN IV ANXIETY Last administered on 12/04/16 21: 47; Admin Dose 0.5 MG; Start 12/01/16 at 01:00 Hydralazine HCl (Apresoline) 10 mg Q6H PRN IV ELEVATED SYSTOLIC BP; Start 12/01 at 01:00 Nitroglycerin (Nitroglycerin (Sl Tab) 0.4 Mg) 1 tab Q5M PRN SL ANGINA; Start at 01:00 Ondansetron HCl (Zofran Inj) 4 mg Q6H PRN IV NAUSEA AND/OR VOMITING; Start at 01:00 Acetaminophen (Tylenol Tab) 650 mg Q6H PRN PO PAIN LEVEL 1-3 OR FEVER Last administered on 12/02/16 11:18; Admin Dose 650 MG; Start 12/01/16 at 01:00 Acetaminophen/ Hydrocodone Bitart ([place] (5/325)) 1 tab Q6H PRN PO MODERATE PAIN LEVEL 4-6 Last administered on 12/04/16 01:28; Admin Dose 1 TAB; Start at 01:00 Morphine Sulfate (morphine) 2 mg Q4H PRN IV SEVERE PAIN LEVEL 7-10; Start 12/01 at 01:00 Docusate Sodium (Colace) 100 mg Q12H PRN PO CONSTIPATION; Start 12/01/16 at 01: 00 Magnesium Hydroxide (Milk Of Mag) 30 ml DAILY PRN PO CONSTIPATION; Start at 01:00 Sodium Biphosphate/ Sodium Phosphate (Fleet Enema) 133 ml DAILY PRN SC CONSTIPATION; Start 12/01/16 at 01:00 Heparin Sodium (Porcine) (Heparin (5000 Units/0.5 ml)) 5,000 unit Q12 SC Last administered on 12/05/16 08:33; Admin Dose 5,000 UNIT; Start 12/01/16 at 09:00 Cholecalciferol (Vitamin D) 5,000 unit DAILY PO Last administered on 12/05/16 08:22; Admin Dose 5,000 UNIT; Start 12/01/16 at 09:00 Folic Acid (Folic Acid) 1 mg DAILY PO Last administered on 12/05/16 08:22; Admin Dose 1 MG; Start 12/01/16 at 09:00 Potassium Chloride (Micro-K) 8 meq DAILY PO Last administered on 12/05/16 08: 22; Admin Dose 8 MEQ; Start 12/01/16 at 09:00 Pantoprazole (Protonix Tab) 40 mg DAILY@06 PO Last administered on 12/05/16 05 :53; Admin Dose 40 MG; Start 12/01/16 at 06:00 Diagnostic Test (Pha) (Accucheck) 1 ea 02 XX ; Start 12/02/16 at 02:00 Miscellaneous Information 1 ea NOTE XX ; Start 12/01/16 at 05:30 Glucose (Glutose) 15 gm Q15M PRN PO DECREASED GLUCOSE; Start 12/01/16 at 05:30 Glucose (Glutose) 22.5 gm Q15M PRN PO DECREASED GLUCOSE; Start 12/01/16 at 05: 30 Dextrose (D50w Syringe) 25 ml Q15M PRN IV DECREASED GLUCOSE; Start 12/01/16 at 05:30 Dextrose (D50w Syringe) 50 ml Q15M PRN IV DECREASED GLUCOSE; Start 12/01/16 at 05:30 Glucagon (Glucagen) 1 mg Q15M PRN IM DECREASED GLUCOSE; Start 12/01/16 at 05:30 Glucose (Glutose) 15 gm Q15M PRN BUCCAL DECREASED GLUCOSE; Start 12/01/16 at 05 :30 Docusate Sodium 100 mg 100 mg BID PO Last administered on 12/05/16 08:22; Admin Dose 100 MG; Start 12/01/16 at 21:00 Ferric Sodium Gluconate Complex/ Sodium Chloride (Ferrlecit/NS) 110 ml @ 110 mls/hr Q24H IVPB Last administered on 12/04/16 11:54; Admin Dose 110 MLS/HR; Start 12/02/16 at 11:00; Stop 12/06/16 at 11:59 Aspirin (Halfprin) 81 mg DAILY PO Last administered on 12/05/16 08:22; Admin Dose 81 MG; Start 12/03/16 at 09:00 Atorvastatin Calcium (Lipitor) 20 mg HS PO Last administered on 12/04/16 20:53 ; Admin Dose 20 MG; Start 12/02/16 at 21:00 Guaifenesin/ Dextromethorphan (Mucinex Dm) 1 tab BID PO Last administered on 08:22; Admin Dose 1 TAB; Start 12/02/16 at 23:30 Salmeterol Xinafoate/ Fluticasone (Advair 100/50 Diskus) 1 inh BID INH Last administered on 12/05/16 08:23; Admin Dose 1 INH; Start 12/02/16 at 23:30 Carvedilol (Coreg) 12.5 mg BID PO Last administered on 12/05/16 08:23; Admin Dose 12.5 MG; Start 12/03/16 at 21:00 Furosemide (Lasix) 80 mg DAILY PO Last administered on 12/05/16 08:23; Admin Dose 80 MG; Start 12/04/16 at 09:00 Thiamine HCl (Vitamin B1) 100 mg DAILY PO Last administered on 12/05/16 08:22 ; Admin Dose 100 MG; Start 12/04/16 at 09:00 Levofloxacin (Levaquin) 750 mg Q48H PO Last administered on 12/05/16 05:53; Admin Dose 750 MG; Start 12/05/16 at 06:00 Insulin Detemir (Levemir) 40 unit DAILY SC Last administered on 12/05/16 08:32 ; Admin Dose 40 UNIT; Start 12/05/16 at 09:00 CORNELIO JOSÉ MD Dec 05, 2016 10:30
[2016-12-05] MEDS: SOD FERRIC GLUC COMPLX 125 MG in SOD CHLORIDE 0.9% 100 ML IVPB SCH (11:11)
--- NOTE | 2016-12-05 12:39 | PDOCDIS ---
Discharge Instructions DIAGNOSIS Discharge Diagnosis: chf CONDITION Patient Condition: Good HOME CARE INSTRUCTIONS: Special Diet: 1800 ADA soft; no added salt to diet. watch sugars more closely. FOLLOW UP/APPOINTMENTS Appointments PCP -1wk Cardio & Nephrology - 2wks. Check weight MWF & record. Call if changes more than 5lbs/week. MICHAEL BOUCHER MD Dec 05, 2016 12:39
[2016-12-05] MEDS ORDERED: Thiamine PO (12:45)
[2016-12-05] MEDS ORDERED: LEVO750T25 PO (12:45)
[2016-12-05] MEDS ORDERED: Guaifenesin/Dm (Sr) PO (12:45)
[2016-12-05] MEDS ORDERED: ASPI-664 PO (12:45)
[2016-12-05] MEDS ORDERED: CARV12.579 PO (12:45)
[2016-12-05] MEDS ORDERED: ATOR20TA65 PO (12:46)
--- NOTE | 2016-12-05 13:57 | DS ---
DATE OF ADMISSION: 11/30/2016 DATE OF DISCHARGE: 12/05/2016 PRIMARY CARE PHYSICIAN: Unknown. CONSULTANTS: Dr. Pranay Brownlee, Dr. Cornelio Fenton DIAGNOSIS ON ADMISSION: Congestive heart failure DIAGNOSES ON DISCHARGE: 1. Acute decompensated systolic congestive heart failure. 2. Chronic pericardial effusion. 3. Dyslipidemia. 4. Bronchitis, pneumonia. HOSPITAL COURSE: This is a 76-year-old gentleman admitted with shortness of breath, probable weight gain and salt indiscretion. The patient was admitted for CHF, ruled out for acute coronary syndrom e by enzymes, EKG, symptoms. Seen by Cardiology and Pulmonary. We increased diuretics while in the hospital stay and optimized his blood pressure. He is presently stable and fit for discharge. I d id reinforce the issue of salt indiscretion and he is aware of dietary and medication benefits. He does not need a stress test at this time. He is presently stable and fit for discharge. He is pres ently not a smoker. EF of around 45%. I added aspirin for secondary prevention. I added thiamine while he is on diuretics. We decreased his Coreg to 12.5 twice daily. In terms of his dyslipidemia, low HDL, and for risk stratification, I placed the patient on Lipitor. Recommend LFTs in maybe 4 to 6 weeks. A lipid panel in maybe 6 to 12 weeks. In terms of cough, I am sending him out on Levsin, Robitussin for the next 3 days as well. In terms of anemia, he is asymptomatic, but he definitely can benefit from iron therapy. He is a [employer]. He was given IV iron while in the hospital. In terms of acute renal failure, acute kidney injury, his creatinine is stable. He will restart his ARB. He will continue his same home dose of Lasix. The patient checks his weight every day, but w as not aware of what to do with changes in weight. He states he may have gained 20 pounds recently. Additionally, his diabetes is not at goal. He may need a change in insulin care therapy down the line. I asked him to cut back on sugar in his diet in the interim. No arrhythmias during his hospi teodora stay. DISCHARGE PLAN: Home. Follow up with Primary in 1 week, Cardiology in 2 weeks, Nephrology in 2 to 3 weeks. DIET: 1800 ADA, renal and cardiac. ACTIVITY: No heavy lifting. DURABLE MEDICAL EQUIPMENT: None. CODE STATUS: FULL. CONDITION: Stable. BARRIERS TO DISCHARGE: None. PENDING TESTS: None. FUNCTIONAL STATUS: The patient is awake, alert, and agrees to the plan of care. REASON FOR ADMISSION: CHF. ALLERGIES: INFLUENZA VIRUS VACCINE. A 2-D echocardiogram shows an EF of 45% with stage I diastolic dysfunction. Moderate pericardial ef fusion, but not change from 2015. Chest x-ray 2 days ago shows cardiomegaly, mild pleural effusion, otherwise unremarkable. Renal ultrasound does not show any obstruction. Bilateral simple kidney c ysts. Insulins and blood cultures and urine culture are unremarkable. Sodium 139, potassium 4.5, ch loride 101, bicarbonate 25, BUN of 36, creatinine 1.9, glucose of 120, A1c of 9.7, triglycerides 166 , total of 150, LDL of 97, HDL of 22, iron of 25, binding capacity of 350, percent fat is 7, TSH of 1.47. LFTs okay. Troponin is negative. Creatinine of 2.48 on admission. STOPPED MEDICATIONS: None. CONTINUED MEDICATIONS: 1. Vitamin D3 at 5000 units daily. 2. Folic acid 1 mg daily. 3. Lasix 80 daily. 4. Glyburide 5 mg twice daily. 5. Levemir 50 daily. 6. Insulin sliding scale and potentially insulin 70/25 twice daily. 7. Cozaar of 25 daily. 8. Omeprazole 20 daily. 9. Potassium 8 mEq daily. 10. Lyrica 75 twice daily. 11. Coenzyme Q10 at 200 mg daily. ALTERED MEDICATIONS: Coreg now 12.5 twice daily. NEW MEDICATIONS: 1. Ecotrin 81 daily. 2. Lipitor 20 at bedtime daily. 3. Levaquin 750 every other day for 3 more days. 4. [id number] Robitussin-DM for cough. 5. Thiamine 100 mg daily. Dictated By: MICHAEL STREETER/NTS Conf#: [id number] DID#: [id number] CC: CORNELIO FENTON MD; PRANAY BROWNLEE MD;*EndCC*
== END 2016-12-05 16:10 | disposition home or self-care (01) | DRG 291 ==
LOC: E/R 15:55 → TEL 22:45
PROVIDERS: ADMIT Hospitalist; ATTEND Hospitalist
DX: I13.0 Hypertensive heart and chronic kidney disease with heart failure and stage 1 through stage 4 chronic kidney disease, or unspecified chronic kidney disease (principal); I50.23 Acute on chronic systolic (congestive) heart failure; J18.9 Pneumonia, unspecified organism; N17.9 Acute kidney failure, unspecified; N18.3 Chronic kidney disease, stage 3 (moderate); E11.22 Type 2 diabetes mellitus with diabetic chronic kidney disease; E87.5 Hyperkalemia; E78.5 Hyperlipidemia, unspecified; J40 Bronchitis, not specified as acute or chronic; E78.00 Pure hypercholesterolemia, unspecified; Z99.2 Dependence on renal dialysis; N40.0 Benign prostatic hyperplasia without lower urinary tract symptoms
CPT/HCPCS: 36415; 71010; 76775; 80048; 80053; 80061; 81001; 81003; 82550; 82553; 82962; 83036; 83540; 83605; 83735; 83880; 84100; 84155; 84300; 84439; 84443; 84484; 84560; 85025; 85610; 85730; 87040; 87086; 87400; 89190; 92610; 93005; 93306; 94640; 94664; 96374; 97116; 97162; 97167; J1940; J0696; J1644; J1815; J1956; J2060; J2916; J7030